=== PATIENT | female | born 1980 | race Caucasian/White ===

== ENCOUNTER 2016-03-25 16:52 | Outpatient (CLI) | payer OTHER, MEDICAID ==
[2016-03-25 17:50] LABS: APPEARANCE,URINE CLEAR; BILIRUBIN,URINE NEGATIVE (NEGATIVE); GLUCOSE, URINE NEGATIVE (NEGATIVE); KETONES,URINE NEGATIVE (NEGATIVE); LEUKOCYTE ESTERASE,URINE NEGATIVE (NEGATIVE); NITRITE,URINE NEGATIVE (NEGATIVE); PROTEIN,URINE NEGATIVE (NEGATIVE); URINE SPECIFIC GRAVITY 1.015; UROBILINOGEN,URINE NEGATIVE mg/dL (<2.0)
[2016-03-25 17:54] LABS: ABSOLUTE EOSINOPHILS # (AUTO) 0.1 10^3/uL (0.0-0.6); ABSOLUTE LYMPHOCYTES (AUTO) 1.7 10^3/uL (0.5-4.7); ABSOLUTE MONOCYTES (AUTO) 0.7 10^3/uL (0.1-1.4); ABSOLUTE NEUT (AUTO) 7.1 10^3/uL (1.7-8.2); BASOPHILS % (AUTO) 0.3 % (0-2); EOSINOPHILS % (AUTO) 1.4 % (0-6); HEMATOCRIT 32.2 % (36.0-47.0); HEMOGLOBIN 10.8 g/dL (12.0-15.5); HGB HCT DIFFERENCE 0.2; LYMPHOCYTES % (AUTO) 17.3 % (13-45); MEAN CORPUSCULAR HEMOGLOBIN 29.7 pg (27.0-33.4); MEAN CORPUSCULAR HGB CONC 33.6 g/dL (32.0-36.0); MEAN CORPUSCULAR VOLUME 88 fl (80-97); RED BLOOD COUNT 3.65 10^6/uL (3.72-5.28); RED CELL DISTRIBUTION WIDTH 14.2 % (11.5-14.0); WHITE BLOOD COUNT 9.6 10^3/uL (4.0-10.5)
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
[2016-03-25 18:04] LABS: URINE BARBITURATES SCREEN NEGATIVE; URINE METHADONE SCREEN NEGATIVE; URINE OPIATES LOW NEGATIVE; URINE PHENCYCLIDINE SCREEN NEGATIVE
[2016-03-25 18:04] LABS: PROTHROMBIN TIME 12.6 SEC (11.4-15.4)
[2016-03-25 18:05] LABS: PARTIAL THROMBOPLASTIN TIME 26.7 SEC (23.5-35.8)
[2016-03-25 20:18] LABS: TOTAL RBC COUNT 2093; TYPE IN FILE? TYPE IN FILE; VOL OF FETOMATERNAL HEMORRHAGE 0 ML (0)
== END 2016-03-25 19:02 | disposition home or self-care (01) ==
LOC: LC 16:52
PROVIDERS: ATTEND Student in an Organized Health Care Education/Training Program
PROC: 4A1HXCZ Monitoring of Products of Conception, Cardiac Rate, External Approach (ICD-10-PCS; principal; 2016-03-25)
DX: O09.522 Supervision of elderly multigravida, second trimester (principal); Z3A.27 27 weeks gestation of pregnancy
CPT/HCPCS: 36415; 76815; 80307; 81001; 85025; 85362; 85460; 85610; 85730

== ENCOUNTER 2016-05-02 17:43 | Outpatient (CLI) | payer OTHER, MEDICAID | END 2016-05-02 19:09 | disposition home or self-care (01) | LOC: LC 17:43 | PROVIDERS: ATTEND Obstetrics & Gynecology | PROC: 4A1HXCZ Monitoring of Products of Conception, Cardiac Rate, External Approach (ICD-10-PCS; principal; 2016-05-02) | DX: O09.523 Supervision of elderly multigravida, third trimester (principal); Z3A.33 33 weeks gestation of pregnancy | CPT/HCPCS: 59025 ==

== ENCOUNTER → 2016-05-07 | Outpatient (CLI) | payer OTHER, MEDICAID ==
[2016-05-07 19:06] LABS: ABSOLUTE EOSINOPHILS # (AUTO) 0.1 10^3/uL (0.0-0.6); ABSOLUTE LYMPHOCYTES (AUTO) 1.6 10^3/uL (0.5-4.7); ABSOLUTE MONOCYTES (AUTO) 0.6 10^3/uL (0.1-1.4); ABSOLUTE NEUT (AUTO) 6.6 10^3/uL (1.7-8.2); BASOPHILS % (AUTO) 0.2 % (0-2); HEMATOCRIT 34.6 % (36.0-47.0); HEMOGLOBIN 11.5 g/dL (12.0-15.5); HGB HCT DIFFERENCE -0.1; LYMPHOCYTES % (AUTO) 17.7 % (13-45); MEAN CORPUSCULAR HEMOGLOBIN 29.5 pg (27.0-33.4); MEAN CORPUSCULAR HGB CONC 33.3 g/dL (32.0-36.0); MEAN CORPUSCULAR VOLUME 89 fl (80-97); MONOCYTES % (AUTO) 6.3 % (3-13); RED CELL DISTRIBUTION WIDTH 15.4 % (11.5-14.0); SEGMENTED NEUTROPHILS % (AUTO) 74.8 % (42-78); WHITE BLOOD COUNT 8.8 10^3/uL (4.0-10.5)
== END ==
LOC: OD 17:08
PROVIDERS: ATTEND Student in an Organized Health Care Education/Training Program
DX: D69.6 Thrombocytopenia, unspecified (principal)
CPT/HCPCS: 85025

== ENCOUNTER → 2016-05-20 | Outpatient (CLI) | payer OTHER, MEDICAID ==
[2016-05-20 18:00] LABS: ALANINE AMINOTRANSFERASE 60 U/L (9-52); ALBUMIN 3.3 g/dL (3.5-5.0); ALKALINE PHOSPHATASE 102 U/L (38-126); ASPARTATE AMINO TRANSFERASE 41 U/L (14-36); BILIRUBIN,DIRECT 0.1 mg/dL (0.0-0.4); BILIRUBIN,TOTAL 0.4 mg/dL (0.2-1.3)
== END ==
LOC: OD 16:30
PROVIDERS: ATTEND Obstetrics & Gynecology
DX: O24.419 Gestational diabetes mellitus in pregnancy, unspecified control (principal); O26.899 Other specified pregnancy related conditions, unspecified trimester
CPT/HCPCS: 36415; 80076; 82239

== ENCOUNTER 2016-06-05 11:14 | Inpatient (IN) | payer OTHER, MEDICAID ==
--- NOTE | 2016-06-05 11:49 | Non Stress Test Report ---
Non Stress Test Datetime Report Generated by CPN: 06/05/2016 11:48 DEMOGRAPHIC EGA NST: 33.1 INDICATION Indication for Study: Ordered by Provider; Other MONITORING Monitor Explained: Monitor Explained; Test Explained; Patient Verbalized Understanding Time on Monitor: 05/02/2016 18:00 Time off Monitor: 05/02/2016 19:00 NST Duration: 60 NST INTERVENTIONS NST Interventions: PO Hydration; Reposition Patient Physician Notified NST: H. Osman CNM BABY A: [id number] BABY A Movement : Present Contraction Frequency : none FHR Baseline : 130 Accelerations : 15X15 Decelerations : None Variability : Moderate 6-25bpm NST Review: Meets Criteria for Reactive NST NST Review and Verified By : Na Camp RNC NST Results: Reactive NST REPORT Report Trigger: Send Report
[2016-06-05 11:57] LABS: AMNISURE (ROM) POSITIVE (NEGATIVE)
[2016-06-05 11:58] LABS: APPEARANCE,URINE CLEAR; BILIRUBIN,URINE NEGATIVE (NEGATIVE); GLUCOSE, URINE NEGATIVE (NEGATIVE); KETONES,URINE NEGATIVE (NEGATIVE); LEUKOCYTE ESTERASE,URINE NEGATIVE (NEGATIVE); NITRITE,URINE NEGATIVE (NEGATIVE); PROTEIN,URINE NEGATIVE (NEGATIVE); URINE SPECIFIC GRAVITY 1.003; UROBILINOGEN,URINE NEGATIVE mg/dL (<2.0)
[2016-06-05 12:38] LABS: URINE BARBITURATES SCREEN NEGATIVE; URINE METHADONE SCREEN NEGATIVE; URINE OPIATES LOW NEGATIVE; URINE PHENCYCLIDINE SCREEN NEGATIVE
[2016-06-05 14:16] LABS: ABSOLUTE MONOCYTES (AUTO) 0.5 10^3/uL (0.1-1.4); ABSOLUTE NEUT (AUTO) 11.3 10^3/uL (1.7-8.2); BASOPHILS % (AUTO) 0.1 % (0-2); EOSINOPHILS % (AUTO) 0.1 % (0-6); HEMATOCRIT 31.7 % (36.0-47.0); HEMOGLOBIN 10.7 g/dL (12.0-15.5); HGB HCT DIFFERENCE 0.4; LYMPHOCYTES % (AUTO) 7.7 % (13-45); MEAN CORPUSCULAR HEMOGLOBIN 29.3 pg (27.0-33.4); MEAN CORPUSCULAR HGB CONC 33.7 g/dL (32.0-36.0); MEAN CORPUSCULAR VOLUME 87 fl (80-97); MONOCYTES % (AUTO) 3.6 % (3-13); RED BLOOD COUNT 3.65 10^6/uL (3.72-5.28); RED CELL DISTRIBUTION WIDTH 15.9 % (11.5-14.0); SEGMENTED NEUTROPHILS % (AUTO) 88.5 % (42-78); WHITE BLOOD COUNT 12.7 10^3/uL (4.0-10.5)
[2016-06-05] MEDS ORDERED: MISOPROSTOL 0.2 MG TABLET ONE (14:20)
[2016-06-05] MEDS ORDERED: OXYTOCIN/NORMAL SALINE 20 UNIT/1,000 ML RTUINJ ONE ×2 (14:20→19:27)
[2016-06-05] MEDS ORDERED: LIDOCAINE 1% INJ-PF (10 MG/ML) 30 ML SDV ONE (14:20)
[2016-06-05] MEDS ORDERED: FENTANYL/BUPIVACAINE/NS/PF 200 MCG/100 ML RTUINJ EPI ONE (15:30)
[2016-06-05] MEDS ORDERED: EPHEDRINE SULFATE INJ 50 MG/1 ML AMPULE ONE (15:30)
[2016-06-05] MEDS ORDERED: BUPIVACAINE HCL 0.25 % INJ/PF (2.5 MG/1 ML) 30 ML VIAL ONE (15:30)
[2016-06-05] MEDS ORDERED: RINGERS SOLUTION,LACTATED 1,000 ML IV PRN ×2 (15:56→15:58)
[2016-06-05] MEDS ORDERED: OXYTOCIN/NORMAL SALINE 1,000 ML IV PRN ×2 (15:58→23:49)
--- NOTE | 2016-06-05 18:02 | L&D General Admission ---
General Admit Datetime Report Generated by CPN: 06/05/2016 18:00 INFORMATION Patient Age: 35 (03/25/2016 16:53:QS system process) EDC: 06/19/2016 00:00 (03/25/2016 17:10:Heather Dozier RN) : 7 (03/25/2016 17:10:Heather Dozier RN) Para: 3 (03/25/2016 19:03:Heather Dozier RN) Term: 3 (03/25/2016 17:10:Heather Dozier RN) Induced Abortions: 3 (03/25/2016 17:10:Heather Dozier RN) Livin (03/25/2016 17:10:Heather Dozier RN) Baby, Number in Womb: 1 (03/25/2016 19:03:Heather Dozier RN) CARE Primary Friend Of The Court: [facility] (03/25/2016 17:10:Heather Dozier RN) Month of 1st Visit: November (03/25/2016 17:10:Heather Dozier RN) Adequate Care: Yes (03/25/2016 17:10:NATASHA Pimentel) Prepregnancy Weight (lb): 201 (03/25/2016 17:10:Heather Dozier RN) Prepregnancy Weight (kg): 91.4 (03/25/2016 17:10:QS system process) Height (in): 64 (05/02/2016 18:32:QS system process) ALLERGIES Medication Allergy: No (03/25/2016 17:10:Heather Dozier RN) Medication Allergies: cat dander (03/25/2016); dog dander (03/25/2016) (03/25/2016 17:51:QS system process) Latex Allergy: No Latex Allergies (03/25/2016 17:10:Heather Dozier RN) Environmental Allergies: cats, dogs, seasonal (03/25/2016 17:10:Heather Dozier RN) COMMUNICATION Primary Language: Namibian (03/25/2016 17:10:Heather Dozier RN) Communication Barrier(s): None (03/25/2016 17:10:Rochelle Cabrera RN) DEMOGRAPHICS Address: [address] [place] [id number] (03/25/2016 16:53:QS system process) Zipcode: [address] (03/25/2016 16:53:QS system process) Home (03/25/2016 16:53:QS system process) Work (03/25/2016 16:53:QS system process) N: [phone] (03/25/2016 16:53:QS system process) Next of Kin Name: CORRINE BARRIENTOS (03/25/2016 16:53:QS system process) Next of Kin (03/25/2016 16:53:QS system process) Next of Kin Relationship: OR (05/02/2016 17:43:QS system process) Date of : 1980 (03/25/2016 16:53:QS system process) Marital Status: Single (03/25/2016 16:53:QS system process) Sex: Female (03/25/2016 16:53:QS system process) Race: (03/25/2016 16:53:QS system process) Ethnicity: Non- or (03/25/2016 16:53:QS system process) Pentecostal: Buddhist (03/25/2016 16:53:QS system process) DRUG AND ALCOHOL USE Alcohol: No (03/25/2016 17:10:Heather Dozier RN) Cigarettes: Former Smoker. [id number] (03/25/2016 17:10:Heather Dozier RN) Marijuana: No (03/25/2016 17:10:Heather Dozier RN) Cocaine: No (03/25/2016 17:10:Heather Dozier RN) Other Illicit Drugs: No (03/25/2016 17:10:Heather Dozier RN) VACCINE HISTORY Influenza Vaccine: Yes (03/25/2016 17:10:Heather Dozier RN) Influenza Date: 11/2015 (03/25/2016 17:10:Heather Dozier RN) Pneumococcal Vaccine: No (03/25/2016 17:10:Heather Dozier RN) Tetanus Vaccine: Yes (03/25/2016 17:10:Heather Dozier RN) Tetanus Date: 02/2016 (03/25/2016 17:10:Heather Dozier RN) Tdap Vaccine: Yes (03/25/2016 17:10:Heather Dozier RN) Tdap Date: 02/2016 (03/25/2016 17:10:Heather Dozier RN) Hepatitis B Vaccine: Uncertain (03/25/2016 17:10:Heather Dozier RN) Ribbon Sweatband Operator: [facility] (03/25/2016 17:10:Heather Dozier RN) Feeding Preference: Breast (03/25/2016 17:10:Heather Dozier RN) Benefit of Breast Feed Discussed: Yes (03/25/2016 17:10:Heather Dozier RN) Circumcision: N/A (03/25/2016 17:10:Heather Dozier RN) Classes Attended: No (03/25/2016 17:10:Heather Dozier RN) Tubal Ligation: No (03/25/2016 17:10:Heather Dozier RN) Tubal Authorization Signed: N/A (03/25/2016 17:10:Heather Dozier RN) Consent: N/A (03/25/2016 17:10:Heather Dozier RN) Consent Signed: N/A (03/25/2016 17:10:Heather Dozier RN) Pain Management Plans: Epidural (03/25/2016 17:10:Heather Dozier RN) Plans for Labor and Delivery: None (03/25/2016 17:10:Heather Dozier RN) Support Person: Josue Hartmann (03/25/2016 17:10:Heather Dozier RN) Support Person Relationship: Significant Other (03/25/2016 17:10:Heather Dozier RN) Cultural/Spritual Practice: No (03/25/2016 17:10:Heather Dozier RN) Spir/Cult Dietary Needs: No (03/25/2016 17:10:Heather Dozier RN) LIVING SITUATION/DISCHARGE PLAN Living Arrangements: House (03/25/2016 17:10:Heather Dozier RN) Adequate Access to:: Electric; Heat; Refrigeration; Plumbing/Running water; Phone; Transportation (03/25/2016 17:10:Heather Dozier RN) WIC Program: No (03/25/2016 17:10:Heather Dozier RN) Discharge Laundry Agent Person: CECIL (03/25/2016 17:10:Heather Dozier RN) Person to Help after Discharge: CECIL (03/25/2016 17:10:Heather Dozier RN) Currently Using [employer]: No (03/25/2016 17:10:Heather Dozier RN) Outside Agency/[employer] Operator: No (03/25/2016 17:10:Heather Dozier RN) Car Seat for Discharge: Yes (03/25/2016 17:10:Heather Dozier RN) Adoption Requested: No (03/25/2016 17:10:Heather Dozier RN) Pt Contact w/ Post : N/A (03/25/2016 17:10:Heather Dozier RN) LABS Blood Type: A Positive (03/25/2016 17:10:Heather Dozier RN) Antibody Screen: Negative (03/25/2016 17:10:Heather Dozier RN) Hemoglobin: 10.7 L (06/05/2016 14:00:QS system process) Hematocrit: 31.7 L (06/05/2016 14:00:QS system process) MCV: 87 (06/05/2016 14:00:QS system process) Group Beta Strep: Negative (03/25/2016 17:10:Heather Dozier RN) Gonorrhea: Negative (03/25/2016 17:10:Heather Dozier RN) Chlamydia: Negative (03/25/2016 17:10:Heather Dozier RN) RPR/VDRL: Nonreactive (03/25/2016 17:10:Heather Dozier RN) Hepatitis B: Negative (03/25/2016 17:10:Heather Dozier RN) Rubella: Immune (03/25/2016 17:10:Heather Dozier RN) OB/PREVIOUS HISTORY Previous Procedures: Ultrasound; NST (03/25/2016 17:10:Heather Dozier RN) Current Procedures: Ultrasound (03/25/2016 17:10:Heather Dozier RN) History of Previous : No (03/25/2016 17:10:Heather Dozier RN) History of Gestational Diabetes: Yes (03/25/2016 17:10:Heather Dozier RN) History of PIH: No (03/25/2016 17:10:Heather Dozier RN) History of Incompetent Cervix: No (03/25/2016 17:10:Heather Dozier RN) History of Placenta Previa/Abrup: Yes (03/25/2016 17:10:Heather Dozier RN) History of Macrosomia: No (03/25/2016 17:10:Heather Dozier RN) History of IUGR: No (03/25/2016 17:10:Heather Dozier RN) History of Hemorrhage: No (03/25/2016 17:10:Heather Dozier RN) History of Loss/Stillborn: No (03/25/2016 17:10:Heather Dozier RN) History of : No (03/25/2016 17:10:Heather Dozier RN) History of D (Rh) Sensitization: No (03/25/2016 17:10:Heather Dozier RN) History Recurrent Loss/Stillborn: No (03/25/2016 17:10:Heather Dozier RN) History Depression/PP Depression: Yes (03/25/2016 17:10:Heather Dozier RN) History of Uterine Anomaly/ADRIÁN: No (03/25/2016 17:10:Heather Dozier RN) History of Infertility: No (03/25/2016 17:10:Heather Dozier RN) History of ART Treatment: No (03/25/2016 17:10:Heather Dozier RN) History of ADRIÁN: No (03/25/2016 17:10:Heather Dozier RN) Comments Obstetrical History: G1: EAB 1995 G2: 1997, episiotomy G3: EAB 2000 G4: 2001 G5: 2008 G6: EAB 2015 G7: current, GDM, placenta previa (resolved), heart palpitations, SOB (03/25/2016 17:10:Heather Dozier RN) MEDICAL HISTORY Med Hx Diabetes: Yes (03/25/2016 17:10:Heather Dozier RN) Diabetes Type: Gestational Diabetes (03/25/2016 17:10:Heather Dozier RN) Med Hx Hypertension: No (03/25/2016 17:10:Heather Dozier RN) Med Hx Heart Disease: Yes (03/25/2016 17:10:Heather Dozier RN) Med Hx Autoimmune Disorder: No (03/25/2016 17:10:Heather Dozier RN) Med Hx Kidney Disease/UTI: No (03/25/2016 17:10:Heather Dozier RN) Med Hx Neurologic/Epilepsy: No (03/25/2016 17:10:Heather Dozier RN) Med Hx Psychiatric Disorders: No (03/25/2016 17:10:Heather Dozier RN) Med Hx Hepatitis/Liver Disease: No (03/25/2016 17:10:Heather Dozier RN) Med Hx Varicosities/Phlebitis: No (03/25/2016 17:10:Heather Dozier RN) Med Hx Thyroid Dysfunction: Yes (03/25/2016 17:10:Heather Dozier RN) Med Hx Trauma/Violence: No (03/25/2016 17:10:Heather Dozier RN) Med Hx Blood Transfusion: No (03/25/2016 17:10:Heather Dozier RN) Med Hx Pulmonary (Asthma,TB): Yes (03/25/2016 17:10:Heather Dozier RN) Med Hx Breast: No (03/25/2016 17:10:Heather Dozier RN) Med Hx COMPLIANCE EXAMINER Surgery: No (03/25/2016 17:10:Heather Dozier RN) Med Hx Hospitalization/Surgery: Yes (03/25/2016 17:10:Heather Dozier RN) Med Hx Anesthetic Complications: No (03/25/2016 17:10:Heather Dozier RN) Med Hx Abnormal Pap Smear: Yes (03/25/2016 17:10:Heather Dozier RN) Other Medical Diseases: No (03/25/2016 17:10:Heather Dozier RN) Med Hx Significant Family Hx: No (03/25/2016 17:10:Heather Dozier RN) Details of Med/Surg Hx: laparotomy - 1 fallopian tube and ovary removed in 2010, currently wearing holter monitor, echocardiogram, undiagnosed pp depression, hypothyroid, shortness of breath, palpitations, ADD, anxiety, childhood asthma, gall bladder removed 2002, abnl pap, LEEP, GERD, rosacea, lower back degeneration, GDM, ITP (03/25/2016 17:10:Heather Dozier RN) INFECTIOUS HISTORY Inf Hx Gonorrhea: No (03/25/2016 17:10:Heather Dozier RN) Inf Hx Chlamydia: Yes (03/25/2016 17:10:Heather Dozier RN) Inf Hx Syphilis: No (03/25/2016 17:10:Heather Dozier RN) Inf Hx HIV/AIDS: No (03/25/2016 17:10:Heather Dozier RN) Inf Hx Human Papilloma Virus: No (03/25/2016 17:10:Heather Dozier RN) Inf Hx Pt/Partner Genital Herpes: No (03/25/2016 17:10:Heather Dozier RN) Inf Hx Tuberculosis/Exposure: No (03/25/2016 17:10:Heather Dozier RN) Inf Hx Hepatitis B,C: No (03/25/2016 17:10:Heather Dozier RN) Inf Hx Rash or Viral Illness: No (03/25/2016 17:10:Heather Dozier RN) Details of Infectious Hx: Chlamydia - 1997 treated Trich - 1995 treated Trich - 2014 treated (03/25/2016 17:10:Heather Dozier RN) GENETIC HISTORY Gen Hx Age >=35 at MINDY: No (03/25/2016 17:10:Heather Dozier RN) Gen Hx Thalassemia: No (03/25/2016 17:10:Heather Dozier RN) Gen Hx Congenital Heart Defect: No (03/25/2016 17:10:Heather Dozier RN) Gen Hx Neural Tube Defect: No (03/25/2016 17:10:Heather Dozier RN) Gen Hx Down's Syndrome: No (03/25/2016 17:10:Heather Dozier RN) Gen Hx Chidi-Sachs: No (03/25/2016 17:10:Heather Dozier RN) Gen Hx Lucas: No (03/25/2016 17:10:Heather Dozier RN) Gen Hx Familial Dysautonomia: No (03/25/2016 17:10:Heather Dozier RN) Gen Hx Sickle Cell Disease/Trait: No (03/25/2016 17:10:Heather Dozier RN) Gen Hx Hemophilia/Blood Disorder: No (03/25/2016 17:10:Heather Dozier RN) Gen Hx Muscular Dystrophy: No (03/25/2016 17:10:Heather Dozier RN) Gen Hx Cystic Fibrosis: No (03/25/2016 17:10:Heather Dozier RN) Gen Hx Huntingtons Chorea: No (03/25/2016 17:10:Heather Dozier RN) Gen Hx Mental Retardation/Autism: No (03/25/2016 17:10:Heather Dozier RN) Gen Hx Tested for Fragile X: No (03/25/2016 17:10:Heather Dozier RN) Gen Hx Other Inher/Chromosomal: No (03/25/2016 17:10:Heather Dozier RN) Gen Hx Maternal Metabolic DO: No (03/25/2016 17:10:Heather Dozier RN) Gen Hx Pt Father or FOB Defect: No (03/25/2016 17:10:Heather Dozier RN) Gen Hx Other Genetic History: No (03/25/2016 17:10:Heather Dozier RN) Gen Hx Drugs/Meds since LMP: Yes (03/25/2016 17:10:Heather Dozier RN) Gen Hx Medications: PNV, Claritan, Synthroid, Vitamin D, omega 3, Ranitidine (03/25/2016 17:10:Heather Dozier RN)
--- NOTE | 2016-06-05 18:02 | L&D Current Admission ---
Current Admit Datetime Report Generated by CPN: 06/05/2016 18:00 ADMISSION INFORMATION Chief Complaint: Suspected Rupture of Membranes (06/05/2016 11:50:Rochelle Cabrera RN)
--- NOTE | 2016-06-05 18:43 | L&D Progress Notes ---
PROGRESS NOTES Datetime Report Generated by CPN: 06/05/2016 18:43 PROGRESS NOTE Procedures: Intrauterine Pressure Catheter; Scalp Electrode Vital Signs : Reviewed Comment: pt resting comfortably bloody show noted cervix 4-5/50/-1 abdomen soft and nontender pitocin at 20 milliunits/ min mvu's 240 iupc flushed per rn pt on peanut ball anticipate vaginal delivery VAGINAL EXAM Dilatation: 3 Effacement: 25 Station: -2 FETUS A FHR - Baseline: 147 Monitoring: Internal Scalp Electrode Variability: Moderate 6-25bpm Accelerations: 15X15 : 38.0 Estimated Weight (gm): 4000 Presentation: Vertex SIGNATURE SIGNATURE: [id number] SIGNATURE: [id number] Assignment: Tiara Muñoz MD Signature: with User ID: [email or web address] : with User ID: [email or web address]
--- NOTE | 2016-06-05 20:01 | L&D Flow Sheet ---
LD Flowsheet Datetime Report Generated by CPN: 06/05/2016 20:00 Datetime: 06/05/2016 19:45 NBP Sys/Iris/Mean (mmHg): 111 (QS system process) : 51 (QS system process) : 72 (QS system process) Pulse: 94 (QS system process) LaborFlag: Labor (QS system process) Datetime: 06/05/2016 19:17 NBP Sys/Iris/Mean (mmHg): 141 (QS system process) : 109 (QS system process) : 116 (QS system process) Pulse: 106 (QS system process) LaborFlag: Labor (QS system process) Datetime: 06/05/2016 19:13 Maternal Assessment Level of Consciousness: Fully Conscious (Sarah Lattibeaudeir, RN) Headache: Frontal (Sarah Lattibeaudeir, RN) Breath Sounds, Left: Clear and Equal (Sarah Lattibeaudeir, RN) Breath Sounds, Right: Clear and Equal (Sarah Lattibeaudeir, RN) Nausea/Vomiting: Denies (Sarah Lattibeaudeir, RN) RUQ Epigastric Pain: Denies (Sarah Lattibeaudeir, RN) Datetime: 06/05/2016 19:02 NBP Sys/Iris/Mean (mmHg): 107 (QS system process) : 58 (QS system process) : 72 (QS system process) Pulse: 100 (QS system process) LaborFlag: Labor (QS system process) Datetime: 06/05/2016 19:00 Vital Signs Stage of : Labor (Rochelle Carine Roulund, RN) Respirations: 18 (Rochelle Carine Roulund, RN) Uterine Activity Monitor Mode: Internal (Rochelle Carine Roulund, RN) Frequency (min): 1.5-2.5 (Rochelle Carine Roulund, RN) Quality: Moderate (Rochelle Carine Roulund, RN) Duration (sec): 60-70 (Rochelle Carine Roulund, RN) Resting Tone (Palpate): Relaxed (Rochelle Carine Roulund, RN) Assessment A Monitor Mode: Internal Scalp Electrode (Rochelle Carine Roulund, RN) FHR Baseline Rate : 160 (Rochelle Carine Roulund, RN) FHR Baseline Changes: No Baseline Change (Rochelle Carine Roulund, RN) Variability: Minimal - Undetectable to <=5 bpm (Rochelle Carine Roulund, RN) Accelerations: None (Rochelle Carine Roulund, RN) Decelerations: Late (Rochelle Carine Roulund, RN) Pain Pain Scale: 1 (Rochelle Carine Roulund, RN) Pain Presence: None/Denies (Rochelle Cabrera, JEFFREY) Pain Type: N/A (Rochelle Cabrera RN) Pain Relief Measures: Comfort Measures (Rochelle Cabrera RN) Pain Coping: Talking Through Contractions (Rochelle Cabrera, JEFFREY) Medications Pitocin (milliunit): Pitocin Remains (milliunits) @ 20 (Rochelle Cabrera, JEFFREY) Patient Care IV/Blood Work: IV Infusing per Order (Rochelle Cabrera RN) Patient Position/Activity: Peanut Ball; Right Extreme (Rochelle Cabrera RN) Comfort Measures: Family Support (Rochelle Cabrera RN) Communication Communication: RN at Bedside; RN Reviewed Strip (Rochelle Cabrera, RN) LaborFlag: Labor (QS system process) Datetime: 06/05/2016 18:56 Vital Signs Stage of : Labor (Rochelle Cabrera, RN) Decelerations: Late (Rochelle Cabrera RN) Actions for Decelerations: Side to Side (Rochelle Cabrera RN) Patient Position/Activity: Peanut Ball; Right Extreme (Rochelle Cabrera, JEFFREY) Communication Communication: RN at Bedside; RN Reviewed Strip (Rochelle Cabrera, RN) Datetime: 06/05/2016 18:45 Vital Signs Stage of : Labor (Rochelle Cabrera, RN) NBP Sys/Iris/Mean (mmHg): 125 (QS system process) : 58 (QS system process) : 81 (QS system process) Pulse: 88 (QS system process) Respirations: 18 (Rochelle Cabrera, RN) Uterine Activity Monitor Mode: External (Rochelle Carine Roulund, RN) Frequency (min): 2-3 (Rochelle Carine Roulund, RN) Quality: Moderate (Rochelle Carine Roulund, RN) Duration (sec): 60-80 (Rochelle Carine Roulund, RN) Resting Tone (Palpate): Relaxed (Rochelle Carine Roulund, RN) Assessment A Monitor Mode: Internal Scalp Electrode (Rochelle Carine Roulund, RN) FHR Baseline Rate : 160 (Rochelle Carine Roulund, RN) FHR Baseline Changes: No Baseline Change (Rochelle Carine Roulund, RN) Variability: Moderate 6-25 bpm (Rochelle Carine Roulund, RN) Accelerations: None (Rochelle Carine Roulund, RN) Decelerations: Variable (Rochelle Carine Roulund, RN) Pain Relief Measures: Comfort Measures (Rochelle Carine Roulund, RN) Pain Coping: Talking Through Contractions (Rochelle Carine Roulund, RN) Medications Pitocin (milliunit): Pitocin Remains (milliunits) @ 20 (Rochelle Sánchezlund, RN) Patient Care IV/Blood Work: IV Infusing per Order (Rochelle Cabrera, RN) Patient Position/Activity: Left Extreme; Peanut Ball (Rochelle Cabrera, RN) Comfort Measures: Family Support (Rochelle Cabrera, RN) I/O Interventions: Ice Chips Given (Rochelle Cabrera, RN) Communication Communication: RN at Bedside; RN Reviewed Strip (Rochelle Cabrera, RN) LaborFlag: Labor (QS system process) Datetime: 06/05/2016 18:39 Contraction Comments: IUPC NOT FUNCTIONING (Rochelle Carinedavid Hernandeznd, RN) Datetime: 06/05/2016 18:36 Patient Position/Activity: Left Extreme; Low Fowlers (Rochelle Carinedavid Hernandeznd, RN) Datetime: 06/05/2016 18:32 Vital Signs Stage of : Labor (Rochelle Cabrera, RN) Respirations: 18 (Rochelle Cabrera, RN) Uterine Activity Monitor Mode: Internal (Rochelle Cabrera, RN) Frequency (min): 2 (Rochelle Cabrera, RN) Quality: Moderate (Rochelle Cabrera, RN) Duration (sec): 65-75 (Rochelle Cabrera, RN) Resting Tone (Palpate): Relaxed (Rochelle Cabrera, RN) Assessment A Monitor Mode: External US (Rochelle Cabrera RN) FHR Baseline Rate : 145 (Rochelle Cabrera, RN) FHR Baseline Changes: No Baseline Change (Rochelle Cabrera, RN) Variability: Moderate 6-25 bpm (Rochelle Cabrera, RN) Accelerations: 15X15 (Rochelle Cabrera RN) Decelerations: None (Rochelle Cabrera RN) Pain Relief Measures: Comfort Measures (Rochelle Cabrera RN) Pain Coping: Talking Through Contractions (Rochelle Cabrera RN) Vaginal Exam Dilatation (cm): 4.5 (Rochelle Cabrera RN) Effacement (%): 50 (Rochelle Cabrera RN) Station: -1 (Rochelle Cabrera RN) Exam by: Vivian BAL CNM (Rochelle Cabrera RN) Vaginal Bleeding: Normal Show (Rochelle Cabrera RN) Cervix, Consistency: Soft (Rochelle Cabrera RN) Cervix, Position: Midposition (Rochelle Cabrera RN) Medications Pitocin (milliunit): Pitocin Remains (milliunits) @ 20 (Rochelle Cabrera RN) Patient Care IV/Blood Work: IV Infusing per Order (Rochelle Cabrera RN) Procedures: Sterile Vag Exam (Rochelle Cabrera RN) Patient Position/Activity: Peanut Ball; Right Extreme (Rochelle Cabrera RN) Comfort Measures: Family Support (Rochelle Cabrera RN) Provider Reviewed Strip: Yes (Rochelle Cabrera RN) Communication Communication: RN at Bedside; RN Reviewed Strip; Provider at Bedside (Rochelle Cabrera RN) LaborFlag: Labor (QS system process) Datetime: 06/05/2016 18:30 NBP Sys/Iris/Mean (mmHg): 114 (QS system process) : 56 (QS system process) : 81 (QS system process) Pulse: 90 (QS system process) LaborFlag: Labor (QS system process) Datetime: 06/05/2016 18:16 Vital Signs Stage of : Labor (Rochelle Cabrera, JEFFREY) NBP Sys/Iris/Mean (mmHg): 119 (QS system process) : 56 (QS system process) : 81 (QS system process) Pulse: 97 (QS system process) Respirations: 18 (Rochelle Cabrera, RN) Uterine Activity Monitor Mode: Internal (Rochelle Carine Roulund, RN) Frequency (min): 2-2.5 (Rochelle Carine Roulund, RN) Quality: Moderate (Rochelle Carine Roulund, RN) Duration (sec): 55-65 (Rochelle Carine Roulund, RN) Resting Tone (Palpate): Relaxed (Rochelle Carine Roulund, RN) Resting Tone IUP (mmHg): 30 (Rochelle Carine Roulund, RN) Intensity IUP (mmHg): 50 (Rochelle Carine Roulund, RN) Assessment A Monitor Mode: Internal Scalp Electrode (Rochelle Carine Roulund, RN) FHR Baseline Rate : 150 (Rochelle Carine Roulund, RN) FHR Baseline Changes: No Baseline Change (Rochelle Carine Roulund, RN) Variability: Moderate 6-25 bpm (Rochelle Carine Roulund, RN) Accelerations: 15X15 (Rochelle Carine Roulund, RN) Decelerations: Variable (Rochelle Carine Roulund, RN) Pain Relief Measures: Comfort Measures (Rochelle Carine Roulund, RN) Pain Coping: Talking Through Contractions (Rochelle Carine Roulund, RN) Medications Pitocin (milliunit): Pitocin Remains (milliunits) @ 20 (Rochelle Cabrera, RN) Patient Care IV/Blood Work: IV Infusing per Order (Rochelle Cabrera, RN) Patient Position/Activity: Peanut Ball; Right Extreme (Rochelle Cabrera, RN) Comfort Measures: Family Support (Rochelle Cabrera, RN) Communication Communication: RN at Bedside; RN Reviewed Strip (Rochelle Cabrera, RN) LaborFlag: Labor (QS system process) Datetime: 06/05/2016 18:01 NBP Sys/Iris/Mean (mmHg): 117 (QS system process) : 60 (QS system process) : 77 (QS system process) Pulse: 103 (QS system process) LaborFlag: Labor (QS system process) Datetime: 06/05/2016 18:00 Vital Signs Stage of : Labor (Rochelle Cabrera, RN) Respirations: 18 (Rochelle Cabrera, RN) Uterine Activity Monitor Mode: Internal (Rochelle Carine Roulund, RN) Frequency (min): 2-2.5 (Rochelle Carine Roulund, RN) Quality: Moderate (Rochelle Carine Roulund, RN) Duration (sec): 55-65 (Rochelle Carine Roulund, RN) Resting Tone (Palpate): Relaxed (Rochelle Carine Roulund, RN) Resting Tone IUP (mmHg): 25 (Rochelle Carine Roulund, RN) Intensity IUP (mmHg): 50 (Rochelle Carine Roulund, RN) Contraction Comments: 245 MVU (Rochelle Carine Roulund, RN) Assessment A Monitor Mode: External US (Rochelle Carine Roulund, RN) FHR Baseline Rate : 160 (Rochelle Carine Roulund, RN) FHR Baseline Changes: No Baseline Change (Rochelle Carine Roulund, RN) Variability: Minimal - Undetectable to <=5 bpm (Rochelle Carine Roulund, RN) Accelerations: None (Rochelle Carine Roulund, RN) Decelerations: Late (Rochelle Carine Roulund, RN) Actions for Decelerations: Side to Side (Rochelle Carine Roulund, RN) Pain Pain Scale: 1 (Rochelle Cabrera RN) Pain Presence: None/Denies (Rochelle Cabrera, JEFFREY) Pain Type: N/A (Rochelle Cabrera, JEFFREY) Pain Relief Measures: Comfort Measures (Rochelle Cabrera, JEFFREY) Pain Coping: Talking Through Contractions (Rochelle Cabrera, JEFFREY) Medications Pitocin (milliunit): Pitocin Remains (milliunits) @ 20 (Rochelle Cabrera, RN) Patient Care IV/Blood Work: IV Infusing per Order (Rochelle Cabrera RN) Patient Position/Activity: Peanut Ball; Right Extreme (Rochelle Cabrera, RN) Comfort Measures: Family Support (Rochelle Cabrera, RN) Communication Communication: RN at Bedside; RN Reviewed Strip (Rochelle Cabrera, RN) LaborFlag: Labor (QS system process) Datetime: 06/05/2016 17:45 Vital Signs Stage of : Labor (Rochelle Cabrera RN) NBP Sys/Iris/Mean (mmHg): 132 (QS system process) : 60 (QS system process) : 86 (QS system process) Pulse: 81 (QS system process) Respirations: 18 (Rochelle Cabrera, RN) Temperature (F): 98.3 (Rochelle Hernandeznd, RN) Temperature (C): 36.8 (QS system process) Temperature Route: Axillary (Rochelle Olivern Deborah, RN) Uterine Activity Monitor Mode: Internal (Rochelle Cabrera, RN) Frequency (min): 2-2.5 (Rochelle Cabrera, RN) Quality: Moderate (Rochelle Sánchezlund, RN) Duration (sec): 60-65 (Rochelle Sánchezlund, RN) Resting Tone (Palpate): Relaxed (Rochelle Cabrera, RN) Assessment A Monitor Mode: Internal Scalp Electrode (Rochelle Cabrera, RN) FHR Baseline Rate : 155 (Rochelle Hernandeznd, RN) FHR Baseline Changes: No Baseline Change (Rochelle Cabrera, RN) Variability: Moderate 6-25 bpm (Rochelle Cabrera, RN) Accelerations: 15X15 (Rochelle Cabrera, RN) Decelerations: None (Rochelle Cabrera, RN) Pain Relief Measures: Comfort Measures (Rochelle Cabrera, RN) Pain Coping: Talking Through Contractions (Rochelle Cabrera, RN) Medications Pitocin (milliunit): Pitocin Remains (milliunits) @ 20 (Rochelle Cabrera, RN) Patient Care IV/Blood Work: IV Infusing per Order (Rochelle Cabrera, RN) Patient Position/Activity: Left Extreme; Peanut Ball (Rochelle Cabrera, RN) Comfort Measures: Family Support (Rochelle Cabrera, RN) Communication Communication: RN at Bedside; RN Reviewed Strip (oRchelle Oliverdavid Cabrera, RN) LaborFlag: Labor (QS system process) Datetime: 06/05/2016 17:42 NBP Sys/Iris/Mean (mmHg): 112 (QS system process) : 65 (QS system process) : 83 (QS system process) Pulse: 109 (QS system process) LaborFlag: Labor (QS system process) Datetime: 06/05/2016 17:38 NBP Sys/Iris/Mean (mmHg): 123 (QS system process) : 58 (QS system process) : 77 (QS system process) Pulse: 114 (QS system process) LaborFlag: Labor (QS system process) Datetime: 06/05/2016 17:33 Vital Signs Stage of : Labor (Rochelle Cabrera RN) Monitor Interventions for UA: IUPC Inserted (Rochelle Cabrera RN) Vaginal Exam Dilatation (cm): 4.0 (Rochelle Cabrera RN) Effacement (%): 50 (Rochelle Cabrera RN) Station: -2 (Rochelle Cabrera RN) Exam by: Vivian BAL CNM (Rochelle Cabrera RN) Vaginal Bleeding: Scant (Rochelle Cabrera RN) Cervix, Consistency: Soft (Rochelle Cabrera RN) Cervix, Position: Midposition (Rochelle Cabrera RN) Procedures: Sterile Vag Exam (Rochelle Cabrera RN) Provider Reviewed Strip: Yes (Rochelle Cabrera RN) Communication Communication: RN at Bedside; RN Reviewed Strip; Provider at Bedside (Rochelle Cabrera RN) Datetime: 06/05/2016 17:31 NBP Sys/Iris/Mean (mmHg): 125 (QS system process) : 70 (QS system process) : 87 (QS system process) Pulse: 94 (QS system process) LaborFlag: Labor (QS system process) Datetime: 06/05/2016 17:30 Vital Signs Stage of : Labor (Rochelle Carine Roulund, RN) Respirations: 18 (Rochelle Carine Roulund, RN) Uterine Activity Monitor Mode: External (Rochelle Carine Roulund, RN) Frequency (min): 2-3 (Rochelle Carine Roulund, RN) Quality: Moderate (Rochelle Carine Roulund, RN) Duration (sec): 55-65 (Rochelle Carine Roulund, RN) Resting Tone (Palpate): Relaxed (Rochelle Carine Roulund, RN) Assessment A Monitor Mode: Internal Scalp Electrode (Rochelle Cabrera, RN) FHR Baseline Rate : 155 (Rochelle Cabrera, RN) FHR Baseline Changes: No Baseline Change (Rochelle Cabrera, RN) Variability: Moderate 6-25 bpm (Rochelle Cabrera, RN) Accelerations: 10X10 (Rochelle Cabrera, RN) Decelerations: Variable (Rochelle Cabrera, RN) Pain Pain Scale: 1 (Rochelle Cabrera, ) Pain Presence: None/Denies (Rochelle Cabrera, RN) Pain Type: N/A (Rochelle Cabrera, ) Pain Relief Measures: Comfort Measures (Rochelle Cabrera, ) Pain Coping: Talking Through Contractions (Rochelle Cabrera, ) Medications Pitocin (milliunit): Pitocin Remains (milliunits) @ 20 (Rochelle Cabrera, RN) Patient Care IV/Blood Work: IV Infusing per Order (Rochelle Cabrera, JEFFREY) Patient Position/Activity: Left Extreme; Peanut Ball (Rochelle Cabrera RN) Comfort Measures: Family Support (Rochelle Cabrera RN) I/O Interventions: Ice Chips Given (Rochelle Cabrera, JEFFREY) Communication Communication: RN at Bedside; RN Reviewed Strip (Rochelle Cabrera, RN) LaborFlag: Labor (QS system process) Datetime: 06/05/2016 17:26 NBP Sys/Iris/Mean (mmHg): 125 (QS system process) : 73 (QS system process) : 92 (QS system process) Pulse: 110 (QS system process) LaborFlag: Labor (QS system process) Datetime: 06/05/2016 17:22 NBP Sys/Iris/Mean (mmHg): 122 (QS system process) : 67 (QS system process) : 86 (QS system process) Pulse: 86 (QS system process) LaborFlag: Labor (QS system process) Datetime: 06/05/2016 17:17 NBP Sys/Iris/Mean (mmHg): 134 (QS system process) : 64 (QS system process) : 90 (QS system process) Pulse: 93 (QS system process) LaborFlag: Labor (QS system process) Datetime: 06/05/2016 17:15 Vital Signs Stage of : Labor (Rochelle Cabrera RN) Respirations: 18 (Rochelle Cabrera RN) Uterine Activity Monitor Mode: External (Rochelle Cabrera RN) Monitor Interventions for UA: [place] Adjusted (Rochelle Cabrera RN) Frequency (min): 2-3 (Rochelle Cabrera RN) Quality: Moderate (Rochelle Cabrera RN) Duration (sec): 50-60 (Rochelle Carine Roulund, RN) Resting Tone (Palpate): Relaxed (Rochelle Carinedavid Cabrera, RN) Assessment A Monitor Mode: Internal Scalp Electrode (Rochelle Cabrera, RN) FHR Baseline Rate : 145 (Rochelle Cabrera, RN) FHR Baseline Changes: No Baseline Change (Rochelle Cabrera, RN) Variability: Moderate 6-25 bpm (Rochelle Sánchezluvivian, RN) Accelerations: 15X15 (Rcohelle Cabrera, RN) Decelerations: None (Rochelle Cabrera, RN) Pain Relief Measures: Comfort Measures (Rochelle Sánchezluvivian, RN) Pain Coping: Talking Through Contractions (Rochelle Cabrera, RN) Medications Pitocin (milliunit): Pitocin Remains (milliunits) @ 20 (Rochelle Oliverdavid Sánchezluvivian, RN) Patient Care IV/Blood Work: IV Infusing per Order (Rochelle Cabrera RN) Patient Position/Activity: Left Extreme; Peanut Ball (Rochelle Cabrera RN) Comfort Measures: Family Support (Rochelle Cabrera RN) Provider Reviewed Strip: Yes (Rochelle Cabrera RN) Communication Communication: RN at Bedside; RN Reviewed Strip (Rochelle Cabrera RN) LaborFlag: Labor (QS system process) Datetime: 06/05/2016 17:11 NBP Sys/Iris/Mean (mmHg): 106 (QS system process) : 51 (QS system process) : 73 (QS system process) Pulse: 96 (QS system process) LaborFlag: Labor (QS system process) Datetime: 06/05/2016 17:06 NBP Sys/Iris/Mean (mmHg): 111 (QS system process) : 54 (QS system process) : 78 (QS system process) Pulse: 96 (QS system process) LaborFlag: Labor (QS system process) Datetime: 06/05/2016 17:03 NBP Sys/Iris/Mean (mmHg): 109 (QS system process) : 53 (QS system process) : 77 (QS system process) Pulse: 98 (QS system process) LaborFlag: Labor (QS system process) Datetime: 06/05/2016 17:00 Vital Signs Stage of : Labor (Rochelle Cabrera, RN) Respirations: 18 (Rochelle Oliverdavid Cabrera, RN) Uterine Activity Monitor Mode: External; Palpation (Rochelle Cabrera, RN) Frequency (min): 2.5-3 (Rochelle Cabrera, RN) Quality: Moderate (Rochelle Cabrera, RN) Duration (sec): 50-60 (Rochelle Cabrera, RN) Resting Tone (Palpate): Relaxed (Rochelle Cabrera, RN) Assessment A Monitor Mode: External US (Rochelle Cabrera, RN) FHR Baseline Rate : 145 (Rochelle Cabrera, RN) FHR Baseline Changes: No Baseline Change (Rochelle Cabrera, RN) Variability: Moderate 6-25 bpm (Rochelle Cabrera, RN) Accelerations: 15X15 (Rochelle Cabrera, RN) Decelerations: None (Rochelle Cabrera, RN) Pain Relief Measures: Comfort Measures (Rochelle Cabrera, RN) Pain Coping: Talking Through Contractions (Rochelle Cabrera, RN) Medications Pitocin (milliunit): Pitocin Increased to (milliunits) @ 20 (Rochelle Cabrera, RN) Patient Care IV/Blood Work: IV Infusing per Order (Rochelle Carine Roulund, RN) Patient Position/Activity: Peanut Ball; Right Extreme (Rochelle Cabrera, RN) Comfort Measures: Family Support (Rochelle Cabrera, RN) Communication Communication: RN at Bedside; RN Reviewed Strip (Rochelle Cabrera, RN) LaborFlag: Labor (QS system process) Datetime: 06/05/2016 16:56 NBP Sys/Iris/Mean (mmHg): 112 (QS system process) : 56 (QS system process) : 80 (QS system process) Pulse: 95 (QS system process) LaborFlag: Labor (QS system process) Datetime: 06/05/2016 16:55 NBP Sys/Iris/Mean (mmHg): 114 (QS system process) : 56 (QS system process) : 80 (QS system process) Pulse: 99 (QS system process) LaborFlag: Labor (QS system process) Datetime: 06/05/2016 16:54 NBP Sys/Iris/Mean (mmHg): 111 (QS system process) : 56 (QS system process) : 80 (QS system process) Pulse: 105 (QS system process) LaborFlag: Labor (QS system process) Datetime: 06/05/2016 16:52 NBP Sys/Iris/Mean (mmHg): 113 (QS system process) : 53 (QS system process) : 77 (QS system process) Pulse: 100 (QS system process) LaborFlag: Labor (QS system process) Datetime: 06/05/2016 16:51 NBP Sys/Iris/Mean (mmHg): 113 (QS system process) : 55 (QS system process) : 77 (QS system process) LaborFlag: Labor (QS system process) Datetime: 06/05/2016 16:50 NBP Sys/Iris/Mean (mmHg): 107 (QS system process) : 58 (QS system process) : 74 (QS system process) Pulse: 115 (QS system process) Anesthesia Interventions Other: Ephedrine (Rochelle Cabrera RN) Anesthesia Comments: 5 MG (Rochelle Cabrera RN) LaborFlag: Labor (QS system process) Datetime: 06/05/2016 16:49 NBP Sys/Iris/Mean (mmHg): 97 (QS system process) : 59 (QS system process) : 73 (QS system process) Pulse: 118 (QS system process) LaborFlag: Labor (QS system process) Datetime: 06/05/2016 16:48 NBP Sys/Iris/Mean (mmHg): 94 (QS system process) : 52 (QS system process) : 70 (QS system process) Pulse: 116 (QS system process) LaborFlag: Labor (QS system process) Datetime: 06/05/2016 16:47 NBP Sys/Iris/Mean (mmHg): 94 (QS system process) : 50 (QS system process) : 65 (QS system process) Pulse: 100 (QS system process) Anesthesia Interventions Other: Ephedrine (Rochelle Cabrera RN) Anesthesia Comments: 5MG (Rochelle Cabrera RN) LaborFlag: Labor (QS system process) Datetime: 06/05/2016 16:46 NBP Sys/Iris/Mean (mmHg): 98 (QS system process) : 53 (QS system process) : 70 (QS system process) Pulse: 92 (QS system process) LaborFlag: Labor (QS system process) Datetime: 06/05/2016 16:45 Vital Signs Stage of : Labor (Rochelle Cabrera RN) NBP Sys/Iris/Mean (mmHg): 107 (QS system process) : 52 (QS system process) : 67 (QS system process) Pulse: 97 (QS system process) Respirations: 18 (Rochelle Cabrera RN) Uterine Activity Monitor Mode: External (Rochelle Cabrera RN) Monitor Interventions for UA: [place] Adjusted (Rochelle Cabrera RN) Frequency (min): 2.5-3 (Rochelle Cabrera RN) Quality: Moderate (Rochelle Cabrera RN) Duration (sec): 50-60 (Rochelle Cabrera RN) Resting Tone (Palpate): Relaxed (Rochelle Cabrera RN) Assessment A Monitor Mode: Internal Scalp Electrode (Rochelle Cabrera, JEFFREY) FHR Baseline Rate : 145 (Rochelle Cabrera RN) FHR Baseline Changes: No Baseline Change (Rochelle Cabrera RN) Variability: Moderate 6-25 bpm (Rochelle Cabrera RN) Decelerations: Late; Variable (Rochelle Cabrera RN) Pain Relief Measures: Comfort Measures (Rochelle Cabrera RN) Pain Coping: Talking Through Contractions (Rochelle Cabrera RN) Medications Pitocin (milliunit): Pitocin Increased to (milliunits) @ 18 (Rochelle Cabrera, RN) Patient Position/Activity: Peanut Ball; Right Extreme (Rochelle Cabrera, JEFFREY) Comfort Measures: Family Support (Rochelle Cabrera, JEFFREY) I/O Interventions: Clear Liquids Given (Rochelle Cabrera, RN) Communication Communication: RN at Bedside; RN Reviewed Strip (Rochelle Cabrera, RN) LaborFlag: Labor (QS system process) Datetime: 06/05/2016 16:42 NBP Sys/Iris/Mean (mmHg): 111 (QS system process) : 54 (QS system process) : 73 (QS system process) Pulse: 99 (QS system process) LaborFlag: Labor (QS system process) Datetime: 06/05/2016 16:40 Monitor Interventions for UA: [place] Adjusted (Rochelle Carine Roulund, RN) Datetime: 06/05/2016 16:38 NBP Sys/Iris/Mean (mmHg): 134 (QS system process) : 59 (QS system process) : 85 (QS system process) Pulse: 96 (QS system process) LaborFlag: Labor (QS system process) Datetime: 06/05/2016 16:36 NBP Sys/Iris/Mean (mmHg): 94 (QS system process) : 51 (QS system process) : 68 (QS system process) Pulse: 107 (QS system process) LaborFlag: Labor (QS system process) Datetime: 06/05/2016 16:35 Vital Signs Stage of : Labor (Rochelle Carine Cabrera, RN) Patient Position/Activity: Peanut Ball; Right Extreme (Rochelle Carine Hernandeznd, RN) Communication Communication: RN at Bedside; Provider at Bedside (Rochelle Carine Roulund, RN) Datetime: 06/05/2016 16:34 NBP Sys/Iris/Mean (mmHg): 115 (QS system process) : 61 (QS system process) : 80 (QS system process) Pulse: 101 (QS system process) LaborFlag: Labor (QS system process) Datetime: 06/05/2016 16:33 Vital Signs Stage of : Labor (Rochelle Cabrera RN) NBP Sys/Iris/Mean (mmHg): 128 (QS system process) : 69 (QS system process) : 90 (QS system process) Pulse: 88 (QS system process) Bedside Blood Glucose: 98 (Rochelle Cabrera RN) LaborFlag: Labor (QS system process) Datetime: 06/05/2016 16:31 NBP Sys/Iris/Mean (mmHg): 130 (QS system process) : 58 (QS system process) : 83 (QS system process) Pulse: 96 (QS system process) LaborFlag: Labor (QS system process) Datetime: 06/05/2016 16:30 Vital Signs Stage of : Labor (Rochelle Cabrera RN) NBP Sys/Iris/Mean (mmHg): 126 (QS system process) : 53 (QS system process) : 77 (QS system process) Pulse: 93 (QS system process) Respirations: 18 (Rochelle Cabrera, JEFFREY) Uterine Activity Monitor Mode: External (Rochelle Cabrera RN) Monitor Interventions for UA: [place] Adjusted (Rochelle Cabrera RN) Frequency (min): 2-3 (Rochelle Cabrera RN) Quality: Mild/Moderate (Rochelle Cabrera RN) Duration (sec): 60-70 (Rochelle Cabrera RN) Resting Tone (Palpate): Relaxed (Rochelle Cabrera, JEFFREY) Assessment A Monitor Mode: Internal Scalp Electrode (Rochelle Sánchezlund, RN) FHR Baseline Rate : 160 (Rochelle Sánchezlund, RN) FHR Baseline Changes: No Baseline Change (Rochelle Olivern Gonzaloluvivian, RN) Variability: Minimal - Undetectable to <=5 bpm (Rochelle Carine Roulund, RN) Accelerations: None (Rochellekenneth Hawk Roulund, RN) Decelerations: Late; Variable (Rochellekenneth Hawk Roulund, RN) Actions for Decelerations: IV Bolus (Rochelle Olivern Gonzalolund, RN) Pain Pain Scale: 0 (Rochelle Hawk Roulund, RN) Pain Presence: None/Denies (Rochellekenneth Hawk Roulund, RN) Pain Type: N/A (Rochelle Carine Roulund, RN) Pain Relief Measures: Comfort Measures (Rochelle Hawk Roulund, RN) Pain Coping: Talking Through Contractions (Rochelle Carinedavid Sánchezlund, RN) Medications Pitocin (milliunit): Pitocin Increased to (milliunits) @ 16 (Rochelle Cabrera, RN) Patient Position/Activity: Left Tilt; Low Fowlers (Rochelle Cabrera, RN) Comfort Measures: Family Support (Rochelle Cabrera, RN) I/O Interventions: Clear Liquids Given (Rochelle Cabrera, RN) Communication Communication: RN at Bedside; RN Reviewed Strip (Rochelle Cabrera, RN) LaborFlag: Labor (QS system process) Datetime: 06/05/2016 16:29 Vital Signs Stage of : Labor (Rochelle Cabrera, RN) Monitor Interventions for UA: [place] Adjusted (Rochelle Cabrera, RN) Communication Communication: RN at Bedside; RN Reviewed Strip; Provider at Bedside (Rochelle Cabrera, RN) Datetime: 06/05/2016 16:28 NBP Sys/Iris/Mean (mmHg): 122 (QS system process) : 56 (QS system process) : 80 (QS system process) Pulse: 99 (QS system process) Patient Position/Activity: Left Tilt; Low Fowlers (Rochelle Cabrera, RN) LaborFlag: Labor (QS system process) Datetime: 06/05/2016 16:27 Bedside Blood Glucose: 98 (QS system process) LaborFlag: Labor (QS system process) Datetime: 06/05/2016 16:26 NBP Sys/Iris/Mean (mmHg): 102 (QS system process) : 51 (QS system process) : 73 (QS system process) Pulse: 98 (QS system process) LaborFlag: Labor (QS system process) Datetime: 06/05/2016 16:25 NBP Sys/Iris/Mean (mmHg): 100 (QS system process) : 56 (QS system process) : 72 (QS system process) Pulse: 98 (QS system process) LaborFlag: Labor (QS system process) Datetime: 06/05/2016 16:23 NBP Sys/Iris/Mean (mmHg): 102 (QS system process) : 53 (QS system process) : 76 (QS system process) Pulse: 109 (QS system process) LaborFlag: Labor (QS system process) Datetime: 06/05/2016 16:22 Vital Signs Stage of : Labor (Rochelle Cabrera RN) NBP Sys/Iris/Mean (mmHg): 114 (QS system process) : 65 (QS system process) : 84 (QS system process) Pulse: 90 (QS system process) Monitor Interventions for FHR: FSE Applied (Rochelle Cabrera RN) Vaginal Exam Dilatation (cm): 4.0 (Rochelle Cabrera RN) Effacement (%): 50 (Rochelle Cabrera RN) Station: -2 (Rochelle Cabrera RN) Exam by: Vivian BAL CNM (Rochelle Cabrera RN) Membrane Status: Ruptured (Rochelle Cabrera RN) Amniotic Fluid Amount: Large (Rochelle Cabrera RN) Procedures: Sterile Vag Exam (Rochelle Cabrera RN) Provider Reviewed Strip: Yes (Rochelle Cabrera RN) Communication Communication: RN at Bedside; RN Reviewed Strip; Provider at Bedside (Rochelle Cabrera RN) LaborFlag: Labor (QS system process) Datetime: 06/05/2016 16:20 NBP Sys/Iris/Mean (mmHg): 103 (QS system process) : 54 (QS system process) : 66 (QS system process) Pulse: 95 (QS system process) I/O Interventions: Colon Cath Inserted (Rochelle Cabrera RN) LaborFlag: Labor (QS system process) Datetime: 06/05/2016 16:18 NBP Sys/Iris/Mean (mmHg): 118 (QS system process) : 54 (QS system process) : 78 (QS system process) Pulse: 112 (QS system process) LaborFlag: Labor (QS system process) Datetime: 06/05/2016 16:17 NBP Sys/Iris/Mean (mmHg): 118 (QS system process) : 54 (QS system process) : 78 (QS system process) Pulse: 112 (QS system process) LaborFlag: Labor (QS system process) Datetime: 06/05/2016 16:16 NBP Sys/Iris/Mean (mmHg): 117 (QS system process) : 59 (QS system process) : 80 (QS system process) Pulse: 118 (QS system process) LaborFlag: Labor (QS system process) Datetime: 06/05/2016 16:15 Vital Signs Stage of : Labor (Rochelle Cabrera, JEFFREY) Respirations: 18 (Rochelle Cabrera, RN) Uterine Activity Monitor Mode: External (Rochelle Cabrera, RN) Monitor Interventions for UA: [place] Adjusted (Rochelle Cabrera, RN) FHR Baseline Changes: Unable to Determine (Rochelle Sánchezluvivian, RN) Pain Pain Scale: 1 (Rochelle Cabrera, RN) Pain Presence: None/Denies (Rochelle Cabrera, RN) Pain Type: N/A (Rochelle Cabrera, RN) Pain Relief Measures: Epidural Given; Comfort Measures (Rochelle Sánchezluvivian, RN) Pain Coping: Talking Through Contractions (Rochelle Cabrera, RN) Medications Pitocin (milliunit): Pitocin Increased to (milliunits) @ 14 (Rochelle Cabrera, RN) Communication Communication: RN at Bedside; RN Reviewed Strip (Rochelle Cabrera, RN) LaborFlag: Labor (QS system process) Datetime: 06/05/2016 16:12 NBP Sys/Iris/Mean (mmHg): 125 (QS system process) : 72 (QS system process) : 88 (QS system process) Pulse: 116 (QS system process) LaborFlag: Labor (QS system process) Datetime: 06/05/2016 16:11 NBP Sys/Iris/Mean (mmHg): 133 (QS system process) : 68 (QS system process) : 91 (QS system process) Pulse: 108 (QS system process) LaborFlag: Labor (QS system process) Datetime: 06/05/2016 16:10 NBP Sys/Iris/Mean (mmHg): 132 (QS system process) : 63 (QS system process) : 90 (QS system process) Pulse: 116 (QS system process) Epidural Procedure: Loading Dose (Rochelle Cabrera RN) LaborFlag: Labor (QS system process) Datetime: 06/05/2016 16:09 NBP Sys/Iris/Mean (mmHg): 134 (QS system process) : 71 (QS system process) : 95 (QS system process) Pulse: 129 (QS system process) Epidural Procedure: Cath Placed (Rochelle Oliverdavid Cabrera, RN) LaborFlag: Labor (QS system process) Datetime: 06/05/2016 16:08 Anesthesia Anesthesia Plans: Epidural (Rochelle Cabrera, RN) Epidural Procedure: Test Dose (Rochelle Cabrera, RN) Datetime: 06/05/2016 16:00 Vital Signs Stage of : Labor (Rochelle Cabrera, JEFFREY) Uterine Activity Monitor Mode: External (Rochelle Cabrera RN) Resting Tone (Palpate): Relaxed (Rochelle Cabrera RN) Assessment A Monitor Mode: External US (Rochelle Cabrera RN) Monitor Interventions for FHR: Ultrasound Adjusted (Rochelle Cabrera RN) FHR Baseline Rate : 150 (Rochelle Cabrera RN) FHR Baseline Changes: No Baseline Change (Rochelle Cabrera RN) Variability: Moderate 6-25 bpm (Rochelle Carine Roulund, RN) Pain Pain Scale: 2 (Rochelle Oliveradvid Cabrera, RN) Pain Presence: Intermittent (Rochelle Carinedavid Cabrera, RN) Pain Type: Cramping (Rochelle Oliverdavid Cabrera, RN) Pain Location: Abdomen (Rochelle Cairnedavid Sánchezlund, RN) Pain Relief Measures: Comfort Measures (Rochelle Oliverdavid Sánchezlund, RN) Pain Coping: Talking Through Contractions (Rochelle Oliverdavid Cabrera, RN) Medications Pitocin (milliunit): Pitocin Increased to (milliunits) @ 12 (Rochelle Sánchezlund, RN) Patient Care IV/Blood Work: New IV Bag Hung (Rochelle Cabrera, RN) Comfort Measures: Family Support (Rochelle Cabrera, RN) Communication Communication: RN at Bedside; RN Reviewed Strip (Rochelle Cabrera, RN) LaborFlag: Labor (QS system process) Datetime: 06/05/2016 15:57 Vital Signs Stage of : Labor (Rochelle Carine Roujesusvivian, RN) Procedure TIME OUT Procedure Type: EPIDURAL (Rochelle Cabrera, RN) Procedure Verify: Correct Patient Identity; Correct Side and Site are Marked; Accurate Procedure Consent Form; Agreement on Procedure to be Done; Correct Patient Position; Relevant Images and Results are Properly Labeled and Displayed (Rochelle Carinedavid Cabrera, RN) Anesthesia Anesthesia Plans: Epidural (Rochelle Cabrera, RN) Epidural Positioning: Sitting (Rochelle Cabrera, RN) Anesthesia Comments: DR DUARTE @ (Rochelle Carine Gonzalonatty, RN) Communication Communication: RN at Bedside; RN Reviewed Strip; Provider at Bedside (Rochelle Cabrera RN) Datetime: 06/05/2016 15:46 Vital Signs Stage of : Labor (Rochelle Cabrera RN) Respirations: 18 (Rochelle Cabrera RN) Temperature (F): 98.3 (Rochelle Cabrera RN) Temperature (C): 36.8 (QS system process) Uterine Activity Monitor Mode: External (Rochelle Cabrera, RN) Monitor Interventions for UA: [place] Adjusted (Rochelle Cabrera, RN) Assessment A Monitor Mode: External US (Rochelle Cabrera, RN) FHR Baseline Rate : 150 (Rochelle Cabrera, RN) FHR Baseline Changes: No Baseline Change (Rochelle Cabrera, RN) Variability: Moderate 6-25 bpm (Rochelle Cabrera, RN) Accelerations: None (Rochelle Cabrera, RN) Decelerations: None (Rochelle Sánchezluvivian, RN) Pain Pain Scale: 2 (Rochelle Cabrera RN) Pain Presence: Intermittent (Rochelle Cabrera RN) Pain Type: Cramping (Rochelle Cabrera RN) Pain Location: Abdomen (Rochelle Cabrera RN) Pain Relief Measures: Comfort Measures (Rochelle Cabrera RN) Pain Coping: Talking Through Contractions (Rochelle Cabrera, RN) Medications Pitocin (milliunit): Pitocin Increased to (milliunits) @ 10 (Rochelle Cabrera, RN) Patient Care IV/Blood Work: New IV Bag Hung (Rochelle Cabrera, RN) Comfort Measures: Family Support (Rochelle Cabrera, RN) Patient Care Comments: SITTING UP FOR EPIDURAL (Rochelle Cabrera, RN) Procedure TIME OUT Procedure Type: EPIDURAL (Rochelle Cabrera, RN) Procedure Verify: Correct Patient Identity; Agreement on Procedure to be Done (Rochelle Cabrera, RN) Anesthesia Anesthesia Plans: Epidural (Rochelle Hawk Maryvivian, RN) Communication Communication: RN at Bedside; RN Reviewed Strip (Rochelle Cabrera, RN) LaborFlag: Labor (QS system process) Datetime: 06/05/2016 15:42 NBP Sys/Iris/Mean (mmHg): 135 (QS system process) : 79 (QS system process) : 98 (QS system process) Pulse: 106 (QS system process) LaborFlag: Labor (QS system process) Datetime: 06/05/2016 15:30 Vital Signs Stage of : Labor (Rochelle Cabrera RN) Respirations: 18 (Rochelle Cabrera, JEFFREY) Uterine Activity Monitor Mode: External (Rochelle Cabrera RN) Frequency (min): IRREG (Rochelle Cabrera RN) Quality: Mild (Rochelle Cabrera RN) Resting Tone (Palpate): Relaxed (Rochelle Cabrera RN) Assessment A Monitor Mode: External US (Rochelle Cabrera RN) Monitor Interventions for FHR: Ultrasound Adjusted (Rochelle Cabrera RN) FHR Baseline Rate : 150 (Rochelle Cabrera RN) FHR Baseline Changes: No Baseline Change (Rochelle Cabrera RN) Variability: Minimal - Undetectable to <=5 bpm (Rochelle Cabrera RN) Accelerations: None (Rochelle Cabrera RN) Decelerations: None (Rochelle Cabrera RN) Pain Relief Measures: Comfort Measures (Rochelle Cabrera RN) Pain Coping: Talking Through Contractions (Rochelle Cabrera RN) Medications Pitocin (milliunit): Pitocin Remains (milliunits) @ 8 (Rochelle Cabrera RN) Comfort Measures: Family Support (Rochelle Cabrera RN) Provider Reviewed Strip: Yes (Rochelle Oliverdavid Cabrera, RN) Patient Care Comments: SITTING UP FOR EPIDURAL (Rochelle Sánchezjesusvivian, RN) Procedure TIME OUT Procedure Type: EPIDURAL (Rcohelle Carinedavid Cabrera, RN) Procedure Verify: Correct Patient Identity; Agreement on Procedure to be Done; Relevant Images and Results are Properly Labeled and Displayed (Rochelle Oliverdavid Cabrera, RN) Anesthesia Anesthesia Plans: Epidural (Rochelle Carinedavid Cabrera, RN) Epidural Positioning: Sitting (Rochelle Oliverdavid Cabrera, RN) Communication Communication: RN at Bedside; RN Reviewed Strip; Provider at Bedside (Rochelle Cabrera, RN) LaborFlag: Labor (QS system process) Datetime: 06/05/2016 15:12 NBP Sys/Iris/Mean (mmHg): 129 (QS system process) : 76 (QS system process) : 89 (QS system process) Pulse: 93 (QS system process) LaborFlag: Antepartum (QS system process) Datetime: 06/05/2016 15:00 Vital Signs Stage of : Antepartum (Rochelle Cabrera RN) Respirations: 18 (Rochelle Cabrera, JEFFREY) Uterine Activity Monitor Mode: External (Rochelle Cabrera RN) Monitor Interventions for UA: [place] Adjusted (Rochelle Cabrera RN) Frequency (min): IRREG (Rochelle Cabrera RN) Quality: Mild (Rochelle Cabrera RN) Duration (sec): 60-70 (Rochelle Cabrera RN) Resting Tone (Palpate): Relaxed (Rochelle Cabrera, JEFFREY) Assessment A Monitor Mode: External US (Rochelle Cabrera RN) Monitor Interventions for FHR: Ultrasound Adjusted (Rochelle Cabrera RN) FHR Baseline Rate : 140 (Rochelle Cabrera RN) FHR Baseline Changes: No Baseline Change (Rochelle Cabrera RN) Variability: Moderate 6-25 bpm (Rochelle Cabrera RN) Accelerations: 15X15 (Rochelle Hernandeznd, RN) Decelerations: None (Rochelle Cabrera, RN) Pain Pain Scale: 1 (Rochelle Oliverdavid Cabrera, RN) Pain Presence: Intermittent (Rochelle Oliverdavid Cabrera, RN) Pain Type: Cramping (Rochelle Carinedavid Cabrera, RN) Pain Location: Abdomen (Rochelle Cabrera, RN) Pain Relief Measures: Comfort Measures (Rochelle Carinedavid Cabrera, RN) Pain Coping: Talking Through Contractions (Rochelle Sáncheznatty, ) Medications Pitocin (milliunit): Pitocin Increased to (milliunits) @ 6 (Rochelle Sáncheznatty, RN) Patient Care IV/Blood Work: IV Infusing per Order (Rochelle Olivern Gonzalojesusnd, RN) Patient Position/Activity: Right Lateral; Low Fowlers (Rochelle Olivern Gonzalolund, RN) Comfort Measures: Family Support (Rochelle Oliverdavid Cabrera, RN) Communication Communication: RN at Bedside; RN Reviewed Strip; Report Given to @ A EMMEL, CNM (Rochelle Olivern Gonzalonatty, RN) Notification Reason: Lab/Diagnostic Study (Rochelle Oliverdavid Cabrera, RN) LaborFlag: Antepartum (QS system process) Datetime: 06/05/2016 14:45 Vital Signs Stage of : Antepartum (Rochelle Cabrera, RN) Respirations: 18 (Rochelle Cabrera, RN) Uterine Activity Monitor Mode: External (Rochelle Cabrera, RN) Monitor Interventions for UA: [place] Adjusted (Rochelle Cabrera, RN) Frequency (min): IRREG (Rochelle Cabrera, RN) Quality: Mild (Rochelle Cabrera, RN) Duration (sec): 60-80 (Rochelle Cabrera, RN) Resting Tone (Palpate): Relaxed (Rochelle Cabrera, RN) Assessment A Monitor Mode: External US (Rochelle Cabrera, JEFFREY) Monitor Interventions for FHR: Ultrasound Adjusted (Rochelle Cabrera, RN) FHR Baseline Rate : 150 (Rochelle Cabrera, RN) FHR Baseline Changes: No Baseline Change (Rochelle Cabrera, RN) Variability: Moderate 6-25 bpm (Rochelle Cabrera, RN) Accelerations: 15X15 (Rochelle Cabrera, RN) Decelerations: None (Rochelle Cabrera, RN) Pain Relief Measures: Comfort Measures (Rochelle Cabrera, RN) Medications Pitocin (milliunit): Pitocin Increased to (milliunits) @ 4 (Rochelle Cabrera, RN) Patient Care IV/Blood Work: IV Infusing per Order (Rochelle Cabrera, RN) Patient Position/Activity: Right Lateral; Low Fowlers (Rochelle Cabrera, RN) Comfort Measures: Family Support (Rochelle Cabrera, RN) Communication Communication: RN at Bedside; RN Reviewed Strip (Rochelle Carine Roulund, RN) LaborFlag: Antepartum (QS system process) Datetime: 06/05/2016 14:42 NBP Sys/Iris/Mean (mmHg): 124 (QS system process) : 58 (QS system process) : 83 (QS system process) Pulse: 96 (QS system process) LaborFlag: Antepartum (QS system process) Datetime: 06/05/2016 14:34 Vital Signs Stage of : Antepartum (Rochelle Cabrera, RN) I/O Interventions: Up to BR (Rochelle Cabrera, RN) Communication Communication: RN at Bedside; RN Reviewed Strip (Rochelle Cabrera, RN) Datetime: 06/05/2016 14:28 Bedside Blood Glucose: 85 (QS system process) LaborFlag: Antepartum (QS system process) Datetime: 06/05/2016 14:26 Vital Signs Stage of : Antepartum (Rochelle Cabrera RN) Respirations: 18 (Rochelle Cabrera, JEFFREY) Uterine Activity Monitor Mode: External (Rochelle Cabrera RN) Monitor Interventions for UA: [place] Adjusted (Rochelle Cabrera, JEFFREY) Frequency (min): IRREG (Rochelle Cabrera RN) Quality: Mild (Rochelle Cabrera RN) Duration (sec): 60-80 (Rochelle Cabrera RN) Resting Tone (Palpate): Relaxed (Rochelle Cabrera RN) Assessment A Monitor Mode: External US (Rochelle Cabrera, JEFFREY) Monitor Interventions for FHR: Ultrasound Adjusted (Rochelle Cabrera, JEFFREY) FHR Baseline Rate : 135 (Rochelle Cabrera RN) FHR Baseline Changes: No Baseline Change (Rochelle Cabrera, JEFFREY) Variability: Moderate 6-25 bpm (Rochelle Cabrera, JEFFREY) Accelerations: 15X15 (Rochelle Cabrera, JEFFREY) Decelerations: None (Rochelle Cabrera, JEFFREY) Pain Relief Measures: Comfort Measures (Rochelle Cabrera, JEFFREY) Pain Coping: Talking Through Contractions (Rochelle Cabrera, JEFFREY) Medications Pitocin (milliunit): Pitocin Started (milliunits) @ 2 (Rochelle Cabrera, JEFFREY) Patient Care IV/Blood Work: IV Infusing per Order (Rochelle Cabrera, RN) Patient Position/Activity: Right Lateral; Low Fowlers (Rochelle Cabrera, RN) Comfort Measures: Family Support (Rochelle Cabrera, RN) Communication Communication: RN at Bedside; RN Reviewed Strip (Rochelle Cabrera, RN) LaborFlag: Antepartum (QS system process) Datetime: 06/05/2016 14:15 Vital Signs Stage of : Antepartum (Rochelle Cabrera RN) NBP Sys/Iris/Mean (mmHg): 103 (QS system process) : 56 (QS system process) : 73 (QS system process) Pulse: 93 (QS system process) SpO2 (%): 18 (Rochelle Cabrera RN) Bedside Blood Glucose: 85 (Rochelle Cabrera RN) LaborFlag: Antepartum (QS system process) Datetime: 06/05/2016 14:08 NBP Sys/Iris/Mean (mmHg): 109 (QS system process) : 59 (QS system process) : 79 (QS system process) Pulse: 90 (QS system process) LaborFlag: Antepartum (QS system process) Datetime: 06/05/2016 13:58 Patient Care IV/Blood Work: Labs Drawn (Rochellekenneth Cabrera, RN) Datetime: 06/05/2016 13:45 Vital Signs Stage of : Antepartum (Rochellekenneth Cabrera, RN) Respirations: 18 (Rochellekenneth Cabrera, RN) Uterine Activity Monitor Mode: External (Rochelle Cabrera, RN) Monitor Interventions for UA: [place] Adjusted (Rochelle Cabrera, RN) Frequency (min): NONE (Rochelle Cabrera, RN) Resting Tone (Palpate): Relaxed (Rochelle Cabrera, RN) Assessment A Monitor Mode: External US (Rochelle Cabrera, RN) Monitor Interventions for FHR: Ultrasound Adjusted (Rochelle Cabrera, RN) FHR Baseline Rate : 145 (Rochelle Cabrera, RN) FHR Baseline Changes: No Baseline Change (Rochelle Cabrera, RN) Variability: Moderate 6-25 bpm (Rochelle Cabrera, RN) Accelerations: None (Rochelle Cabrera, RN) Decelerations: None (Rochelle Cabrera, RN) Pain Relief Measures: Comfort Measures (Rochelle Cabrera, RN) Patient Care IV/Blood Work: IV Infusing per Order (Rochelle Cabrera, RN) Procedures: Consents Signed (Rochelle Cabrera, RN) Patient Position/Activity: Right Lateral; Low Fowlers (Rochelle Cabrera, RN) Comfort Measures: Family Support (Rochelle Cabrera, RN) Communication Communication: RN at Bedside; RN Reviewed Strip (Rochelle Carinedavid Cabrera, RN) LaborFlag: Antepartum (QS system process) Datetime: 06/05/2016 13:30 Patient Care Comments: BEDSIDE U/S (Rochelle Cabrera, RN) Datetime: 06/05/2016 13:24 Vital Signs Stage of : Antepartum (Rochelle Cabrera, RN) I/O Interventions: Up to BR (Rochelle Cabrera, RN) Provider Reviewed Strip: Yes (Rochelle Cabrera, RN) Communication Communication: RN at Bedside; RN Reviewed Strip (Rochelle Cabrera, RN) Datetime: 06/05/2016 13:15 Vital Signs Stage of : Antepartum (Rochelle Cabrera, RN) NBP Sys/Iris/Mean (mmHg): 115 (QS system process) : 59 (QS system process) : 78 (QS system process) Pulse: 88 (QS system process) Respirations: 18 (Rochelle Olivern Gonzalonatty, RN) Uterine Activity Monitor Mode: External (Rochelle Cabrera, RN) Frequency (min): NONE (Rochelle Oliverdavid Cabrera, RN) Resting Tone (Palpate): Relaxed (Rochelle Olivern Gonzalolund, RN) Assessment A Monitor Mode: External US (Rochelle Cabrera RN) FHR Baseline Rate : 135 (Rochelle Cabrera RN) FHR Baseline Changes: No Baseline Change (Rochelle Cabrera RN) Variability: Moderate 6-25 bpm (Rochelle Cabrera RN) Accelerations: 15X15 (Rochelle Cabrera RN) Decelerations: None (Rochelle Cabrera RN) Pain Relief Measures: Comfort Measures (Rochelle Cabrera RN) Patient Position/Activity: Right Lateral; Low Fowlers (Rochelle Cabrera RN) Comfort Measures: Family Support (Rochelle Cabrera RN) Communication Communication: RN at Bedside; RN Reviewed Strip (Rochelle Cabrera RN) LaborFlag: Antepartum (QS system process) Datetime: 06/05/2016 13:10 Patient Care IV/Blood Work: IV Started; IV Bolus Started (Na Camp, RNC) Datetime: 06/05/2016 12:51 NBP Sys/Iris/Mean (mmHg): 118 (QS system process) : 56 (QS system process) : 80 (QS system process) Pulse: 88 (QS system process) LaborFlag: Antepartum (QS system process) Datetime: 06/05/2016 12:47 Vital Signs Stage of : Antepartum (Rochelle Cabrera RN) Vaginal Exam Dilatation (cm): 3.0 (Rochelle Cabrera RN) Effacement (%): 25 (Rochelle Cabrera RN) Station: -2 (Rochelle Cabrera RN) Exam by: Vivian BAL CNM (Rochelle Cabrera RN) Membrane Status: Ruptured (Rochelle Cabrera RN) Membranes Rupture Method: Spontaneous (Rochelle Cabrera RN) Amniotic Fluid Color: Clear (Rochelle Cabrera RN) Procedures: Sterile Vag Exam (Rochelle Cabrera RN) Provider Reviewed Strip: Yes (Rochelle Cabrera RN) Communication Communication: RN at Bedside; RN Reviewed Strip; Provider at Bedside (Rochelle Carinedavid Cabrera, RN) Datetime: 06/05/2016 12:45 Vital Signs Stage of : Antepartum (Rochelle Carinedavid Cabrera, RN) Uterine Activity Monitor Mode: External (Rochelle Cabrera, JEFFREY) Monitor Interventions for UA: [place] Adjusted (Rochelle Cabrera, RN) Frequency (min): NONE (Rochelle Cabrera, RN) Resting Tone (Palpate): Relaxed (Rochelle Cabrera, RN) Assessment A Monitor Mode: External US (Rochelle Cabrera RN) Monitor Interventions for FHR: Ultrasound Adjusted (Rochelle Cabrera, RN) FHR Baseline Rate : 140 (Rochelle Cabrera RN) FHR Baseline Changes: No Baseline Change (Rochelle Cabrera RN) Variability: Moderate 6-25 bpm (Rochelle Cabrera, RN) Accelerations: 15X15 (Rochelle Cabrera, RN) Decelerations: None (Rochelle Cabrera, RN) Pain Relief Measures: Comfort Measures (Rochelle Cabrera, RN) Patient Position/Activity: Right Lateral; Low Fowlers (Rochelle Cabrera, RN) Comfort Measures: Family Support (Rochelle Cabrera, RN) Communication Communication: RN at Bedside; RN Reviewed Strip (Rochelle Cabrera, RN) LaborFlag: Antepartum (QS system process) Datetime: 06/05/2016 12:32 Vital Signs Stage of : Antepartum (Rochelle Cabrera, RN) I/O Interventions: Up to BR (Rochelle Cabrera, RN) Communication Communication: RN at Bedside; RN Reviewed Strip (Rochelle Oliverdavid Cabrera, RN) Datetime: 06/05/2016 12:15 Vital Signs Stage of : Antepartum (Rochellekenneth Cabrera, RN) NBP Sys/Iris/Mean (mmHg): 119 (QS system process) : 63 (QS system process) : 79 (QS system process) Pulse: 92 (QS system process) Respirations: 18 (Rochelle Cabrera, RN) Uterine Activity Monitor Mode: External (Rochelle Cabrera, JEFFREY) Frequency (min): NONE (Rochelle Cabrera, JEFFREY) Resting Tone (Palpate): Relaxed (Rochelle Cabrera, RN) Assessment A Monitor Mode: External US (Rochelle Cabrera RN) FHR Baseline Rate : 145 (Rochelle Cabrera RN) FHR Baseline Changes: No Baseline Change (Rochelle Cabrera, JEFFREY) Variability: Moderate 6-25 bpm (Rochelle Cabrera, RN) Accelerations: 15X15 (Rochelle Cabrera, RN) Decelerations: None (Rochelle Cabrera, RN) Pain Relief Measures: Comfort Measures (Rochelle Cabrera, RN) Membrane Status: Ruptured (Rochelle Cabrera, RN) Membranes Rupture Method: Spontaneous (Rochelle Cabrera, JEFFREY) Amniotic Fluid Color: Clear (Rochelle Cabrera, JEFFREY) Patient Position/Activity: Right Lateral; Low Fowlers (Rochelle Cabrera, RN) Comfort Measures: Family Support (Rochelle Cabrera, RN) Communication Communication: RN at Bedside; RN Reviewed Strip (Rochelle Cabrera, RN) LaborFlag: Antepartum (QS system process) Datetime: 06/05/2016 11:50 Vital Signs Stage of : Antepartum (Rochellekenneth Cabrera, RN) Uterine Activity Monitor Mode: External (Rochellekenneth Cabrera, RN) Monitor Interventions for UA: [place] Adjusted (Rochelle Cabrera RN) Resting Tone (Palpate): Relaxed (Rochelle Cabrera RN) Assessment A Monitor Mode: External US (Rochelle Cabrera RN) Monitor Interventions for FHR: Ultrasound Adjusted (Rochelle Cabrera RN) FHR Baseline Rate : 145 (Rochelle Cabrera RN) Variability: Moderate 6-25 bpm (Rochelle Cabrera RN) Pain Pain Scale: 0 (Rochelle Cabrera RN) Pain Presence: None/Denies (Rochelle Cabrera RN) Pain Type: N/A (Rochelle Cabrera RN) Pain Goal: 1 (Rochelle Cabrera RN) Pain Relief Measures: Comfort Measures (Rochelle Cabrera RN) Vaginal Bleeding: None (Rochelle Cabrera RN) Maternal Assessment Level of Consciousness: Fully Conscious (Rochelle Cabrera RN) DTR's/Clonus: DTRs 1+; No Clonus (Rochelle Cabrera RN) Headache: Generalized (Rochelle Cabrera RN) Breath Sounds, Left: Clear and Equal (Rochelle Cabrera RN) Breath Sounds, Right: Clear and Equal (Rochelle Cabrera RN) Nausea/Vomiting: Present (Rochelle Cabrera RN) RUQ Epigastric Pain: Denies (Rochelle Cabrera RN) Patient Position/Activity: Right Lateral; Low Fowlers (Rochelle Cabrera RN) Comfort Measures: Family Support (Rochelle Cabrera RN) I/O Interventions: Clear Liquids Given; Up to BR (Rochelle Cabrera RN) Teaching Instructional Method: Verbal; Patient Instructed; Family/Support Person Instructed; Verbalized Understanding (Rochelle Cabrera RN) Plan of Care: Plan of Care Discussed (Rochelle Cabrera RN) Unit Routine: [place] to Room; Call Zambrano; Bed; Phone/Cell Phone Use; Unit Personnel; Handwashing; Monitoring; Safety/Fall Risk Prevention; Diet/Nutrition Services; Bathroom Privileges (Rochelle Cabrera RN) Pain Management: Pain Scale/Goals; Comfort Measures (Rochelle Cabrera RN) Related: Common Discomforts of ; Maternal Physical Changes; Maternal Emotional Changes; Nutrition; Hydration; Activity and Rest (Rochelle Cabrera RN) Communication Communication: RN at Bedside; RN Reviewed Strip (Rochelle Cabrera RN) LaborFlag: Antepartum (QS system process) Datetime: 06/05/2016 11:47 Vital Signs Stage of : Antepartum (Rochelle Cabrera RN) Respirations: 18 (Rochelle Cabrera RN) Temperature (F): 98.0 (Rochelle Cabrera, JEFFREY) Temperature (C): 36.7 (QS system process) Uterine Activity Monitor Mode: External (Rochelle Cabrera RN) Monitor Interventions for UA: [place] Adjusted (Rochelle Cabrera, JEFFREY) Resting Tone (Palpate): Relaxed (Rochelle Cabrera, JEFFREY) Assessment A Monitor Mode: External US (Rochelle Cabrera RN) Monitor Interventions for FHR: Ultrasound Adjusted (Rochelle Cabrera RN) FHR Baseline Rate : 145 (Rochelle Cabrera, JEFFREY) Pain Pain Scale: 0 (Rochelle Cabrera RN) Pain Presence: None/Denies (Rochelle Cabrera RN) Pain Type: N/A (Rochelle Cabrera RN) Pain Relief Measures: Comfort Measures (Rochelle Cabrera RN) Patient Position/Activity: Right Lateral (Rochelle Cabrera RN) Comfort Measures: Family Support (Rochelle Cabrera RN) I/O Interventions: Up to BR (Rochelle Cabrera RN) Communication Communication: RN at Bedside; RN Reviewed Strip (Rochelle Cabrera, JEFFREY) LaborFlag: Antepartum (QS system process) Datetime: 05/02/2016 18:01 Temperature (C): 36.8 (QS system process) Datetime: 03/25/2016 17:10 Membranes Ruptured Date/Time: 06/05/2016 08:00 (Rochelle Cabrera RN) Amniotic Fluid Amount: Small (Rochelle Cabrera RN)
[2016-06-05] MEDS ORDERED: BENZOCAINE/MENTHOL AEROSOL SPRAY 56 ML TOP PRN (23:49)
[2016-06-05] MEDS ORDERED: DIPH/PERTUSS(ACELL)/TETANUS VAC/PF 0.5 ML SYR (>=10YO) IM PRN (23:49)
[2016-06-05] MEDS ORDERED: ACETAMINOPHEN WITH CODEINE #3 TABLET PO PRN (23:49)
[2016-06-05] MEDS ORDERED: MEASLES,MUMPS&RUBELLA VACC/PF 0.5 ML VIAL SUBCUT PRN (23:49)
[2016-06-05] MEDS ORDERED: ZOLPIDEM TARTRATE 5 MG TABLET PO PRN (23:49)
[2016-06-05] MEDS ORDERED: DIBUCAINE 1% OINTMENT 28 GM TP PRN (23:49)
[2016-06-06] MEDS ORDERED: IBUPROFEN 800 MG TABLET ONE (00:53)
--- NOTE | 2016-06-06 01:47 | Admission Physical ---
Datetime Report Generated by CPN: 06/06/2016 01:47 CURRENT ADMISSION Chief Complaint: Suspected Ruptured Membranes ALLERGIES Medication Allergies: No Medication Allergies: NKDA Latex: No Latex Allergies Environmental Allergies: cats, dogs, seasonal OBSTETRICAL HISTORY EDC: 06/19/2016 00:00 : 7 Para: 3 Para: 3 Term: 3 : 0 SAB: 0 IAB: 3 Ectopic: 0 Livin Cesareans: 0 VBACs: 0 Multiple Births: 0 Gestational Diabetes: Yes Rh Sensitization: No Incompetent Cervix: No ADRIÁN: No Infertility: No ART Treatment: No Uterine Anomaly: No IUGR: No Hx Previous C/S: No Macrosomia: No Hx Loss/Stillborn: No PIH: No Hx : No Placenta Previa/Abruption: Yes Depression/PP Depression: Yes PTL/PROM: No Post Hemorrhage: No Current Procedures: Ultrasound Obstetrical History Comments: G1: EAB 1995 G2: 1997, episiotomy G3: EAB 2000 G4: 2001 G5: 2008 G6: EAB 2015 G7: current, GDM, placenta previa (resolved), heart palpitations, SOB SEE RECORDS Alcohol: No Marijuana : No Cocaine: No Other Illicit Drugs: No Cigarettes: Former Smoker. [id number] MEDICAL HISTORY Diabetes: Yes Diabetes Type: Gestational Diabetes Blood Transfusion: No Pulmonary Disease (Asthma, TB): Yes Breast Disease: No Hypertension: No Building Coordinator Surgery: No Heart Disease: Yes Hosp/Surgery: Yes Autoimmune Disorder: No Anesthetic Complications: No Kidney Disease: No Abnormal Pap Smear: Yes Neuro/Epilepsy: No Psychiatric Disorders: No Other Medical Diseases: No Hepatitis/Liver Disease: No Significant Family History: No Varicosities/Phlebitis: No Trauma/Violence : No Thyroid Dysfunction: Yes Medical History Comments: laparotomy - 1 fallopian tube and ovary removed in 2010, currently wearing holter monitor, echocardiogram, undiagnosed pp depression, hypothyroid, shortness of breath, palpitations, ADD, anxiety, childhood asthma, gall bladder removed 2002, abnl pap, LEEP, GERD, rosacea, lower back degeneration, GDM, ITP INFECTIOUS HISTORY Gonorrhea: No Genital Herpes: No Chlamydia: Yes Tuberculosis: No Syphilis: No Hepatitis: No HIV/AIDS Exposure: No Rash or Viral Illness: No HPV: No Infectious History Comments: Chlamydia - 1997 treated Trich - 1995 treated Trich - 2014 treated PHYSICAL EXAM General: Normal HEENT: Normal Neurologic: Normal Thyroid: Normal Heart: Normal Lungs: Normal Breast: Normal Back: Normal Abdomen: Normal Genitourinary Exam: Normal Extremities: Normal DTRs: Normal Pelvic Type: Adequate Vital Signs: Reviewed VAGINAL EXAM Dilatation: 3 Effacement: 25 Station: -2 FETUS A EGA: 38.0 Monitoring: External US Accelerations: 15X15 Decelerations: None FHR Category: Category I Estimated Weight (gm): 4000 Presentation: Vertex Admit Comment: 35 yo presents with ROM since 08 this morning extensive history GDM- has taken Metformin with no change, now on glyburide 1.25 mg po qam and qpm ITP of - seen by Dr. Saleh and started steroid use yesterday - only 3 doses proven pelvis for 9lb 5 oz NKDA AMA Hypothyroidism Obesity admit amnisure for confirmation EFW- pt concerned with vaginal delivery and internal hemorrhoids. Pt would like the option of general anesthesia if epidural not available risks and benefits reviewed with pt and spouse labs drawn Anesthesia consult ok to do epidural start pitocin per protocol pt reassured anticipate PLANS FOR LABOR AND DELIVERY Labor and Delivery: None Pain Management: Epidural Feeding Preference: Breast Benefit of Breast Feed Discussed: Yes Circumcision: N/A INFORMED CONSENT Assignment: Tiara Muñoz MD Signature: with User ID: [email or web address] : with User ID: [email or web address]
--- NOTE | 2016-06-06 01:48 | Delivery Summary ---
Del Sum A-C Datetime Report Generated by CPN: 06/06/2016 01:48 DELIVERY PERSONNEL DELIVERY PERSONNEL: [id number];[id number] Delivery Doctor:: Tiara Muñoz MD Labor and Delivery Nurse:: Sarah Rankin RN Labor and Delivery Nurse:: Juanita Johnson RN Nursery Nurse:: Willow Tipton RN Outdoor Pursuits Instructor/CONTENT CREATION MANAGER: Lorrie Scott, ST MATERNAL INFORMATION Delivery Anesthesia: Epidural Medications After Delivery: Pitocin Drip 20 Units/1000ml NSS Estimated Blood Loss (ml): 200 Maternal Complications: None Provider Comments: one minute dystocia releived with Ivon, suprapubic pressure and delivery of posterior arm. No complications LABOR SUMMARY EDC: 06/19/2016 00:00 No. Babies in Womb: 1 Attempted: No Labor Anesthesia: Epidural LABOR INFORMATION Reason for Induction: Not Applicable Onset of Labor: 06/05/2016 14:30 Complete Dilatation: 06/05/2016 23:17 Oxytocin: Augmentation Group B Beta Strep: Negative Antibiotics # of Doses: 0 Steroids Given: None Reason Steroids Not Administered: Not Applicable MEMBRANES Membranes Rupture Method: Spontaneous Rupture of Membranes: 06/05/2016 08:00 Length of Rupture (hr): 15.42 Amniotic Fluid Color: Clear Amniotic Fluid Amount: Large Amniotic Fluid Odor: Normal STAGES OF LABOR Stage 1 hr: 8 Stage 1 min: 47 Stage 2 hr: 0 Stage 2 min: 8 Stage 3 hr: 0 Stage 3 min: 3 Total Time in Labor hr: 8 Total Time in Labor min: 58 VAGINAL DELIVERY Episiotomy: None Laceration Extension: N/A Laceration Type: None Laceration Repair: Not Applicable Sponge Count Correct: N/A Sharps Count Correct: N/A CSECTION DELIVERY Primary Indication: N/A Secondary Indication: N/A CSection Incidence: N/A Labor: N/A Elective: N/A CSection Incision: N/A BABY A INFORMATION Infant Delivery Date/Time: 06/05/2016 23:25 Method of Delivery: Vaginal Born in Route : No : N/A Forceps: N/A Vacuum Extraction: N/A Shoulder Dystocia : Yes SHOULDER DYSTOCIA BABY A Delivery of Head: 06/05/2016 23:24 Time Head to Delivery : 1.0 1st Intervention to Resolve: McRobert's Maneuver 2nd Intervention to Resolve: Suprapubic Pressure 3rd Intervention to Resolve: Posterior Arm Release Verify NO Fundal Pressure: No Fundal Pressure Applied Arm Under Symphisis at Del: Left PRESENTATION/POSITION BABY A Presentation: Cephalic Cephalic Presentation: Vertex Vertex Position: Right Occipital Anterior Breech Presentation: N/A PLACENTA INFORMATION BABY A Placenta Delivery Time : 06/05/2016 23:28 Placenta Method of Delivery: Spontaneous Placenta Status: Delivered SCORES BABY A Heart Rate 1 min: >100 bpm Resp Effort 1 min: Slow, Irregular Reflex Irritability 1 min: Cough or Sneeze or Pulls Away Muscle Tone 1 min: Active Motion Color 1 min: Body [place], Extremities Blue Resuscitation Effort 1 min: Tactile Stimulation SCORE 1 MIN: 8 Heart Rate 5 min: >100 bpm Resp Effort 5 min: Slow, Irregular Reflex Irritability 5 min: Cough or Sneeze or Pulls Away Muscle Tone 5 min: Active Motion Color 5 min: Body [place], Extremities Blue SCORE 5 MIN: 8 INFORMATION BABY A Gestational Age at Delivery: 38.0 Gestational Status: Early Term- 37- 38.6 Weeks Infant Outcome : Liveborn Infant Condition : Stable Infant Sex: Female IDENTIFICATION BABY A Verification Date/Time: 06/05/2016 23:47 ID Band Number: [id number] Mother's Name Verified: Yes RN Verifying : R Alex, RNC Additional Verifying Personnel: [facility], RN WEIGHT/LENGTH BABY A Birthweight (gm): 4135 Weight (lb): 9 Weight (oz): 2 Infant Length (in): 18.50 Length (cm): 46.99 CORD INFORMATION BABY A No. Cord Vessels: 3 Nuchal Cord : N/A Cord Blood Taken: Yes-For Storage (Mom's Blood type +) Infant Suction: Mouth; Nose; Pharynx ASSESSMENT BABY A Infant Complications: Shoulder Dystocia Physical Findings at Delivery: Within Normal Limits Infant Respirations: Appears Normal Skin to Skin: Yes Skin to Skin Time (min): 30 Subway Operator/ALS Called : No Infant Care By: Mehrdad Tipton RN Transferred To: Remains with Mother BABY B INFORMATION : N/A SIGNATURES Signature: with User ID: Corona
--- NOTE | 2016-06-06 03:46 | L&D Discharge Summary ---
OB Discharge Summary Datetime Report Generated by CPN: 06/06/2016 03:46 DISCHARGE DIAGNOSIS Diagnosis/Symptoms: Reassuring Surveillance - Annotate Details Diagnoses/Symptoms Other: IUP @ 27.5. Not in labor Gestation: 38.0 Number of Babies in Womb: 1 Parity: 3 DIET/ACTIVITY/RESTRICTIONS Diet: Regular Activity: Normal Activity TEACHING/INSTRUCTIONS/REFERRALS Instructions Given To: Pt/ FOB Instructions Understood: Patient Verbalized Understanding; Support Person Verbalized Understanding Referrals: None Educational Materials- Other: NST, Kick counts DISCHARGE INFORMATION Discharged AMA: No Discharge Date/Time: 03/25/2016 19:02 Discharged To: Home Discharge Provider Name: HRaphael Osman CNM Accompanied By: FOB Discharge Method: Ambulatory Condition: Stable FOLLOW UP INFORMATION Follow Up With: [facility] Follow Up On: As Scheduled Follow Up Phone Number: [facility] -
[2016-06-06] MEDS ORDERED: IBUPROFEN 800 MG TABLET PO SCH (06:00)
[2016-06-06 07:01] LABS: HEMATOCRIT 28.9 % (36.0-47.0); HGB HCT DIFFERENCE 1.1; MEAN CORPUSCULAR HEMOGLOBIN 29.7 pg (27.0-33.4); MEAN CORPUSCULAR HGB CONC 34.5 g/dL (32.0-36.0); MEAN CORPUSCULAR VOLUME 86 fl (80-97); RED BLOOD COUNT 3.36 10^6/uL (3.72-5.28); RED CELL DISTRIBUTION WIDTH 15.5 % (11.5-14.0); WHITE BLOOD COUNT 11.5 10^3/uL (4.0-10.5)
[2016-06-06] MEDS: ACETAMINOPHEN WITH CODEINE #3 TABLET PO PRN ×2 (08:46→16:00)
--- NOTE | 2016-06-06 09:33 | PDOC PROGRESS REPORT ---
Subjective-OB Subjective: Post Delivery Day: 35 year old. Denies any needs at this time Physical Exam (OB) Vital Signs: Temp Pulse Resp BP Pulse Ox 98.4 F 97 18 108/54 L 99 06/06/16 01:49 06/06/16 01:49 06/06/16 01:49 06/06/16 01:49 06/06/16 01:49 Intake & Output 06/05/16 06/06/16 06/07/16 06:59 06:59 06:59 Weight 109.769 kg - Lochia Lochia Amount: Small 10-25 ml Lochia Color: Rubra/Red - Abdomen Description: Soft, Round Hernia Present: No Bowel Sounds: Normoactive Flatus Presence: Present Stool: No Fundal Description: Firm, Midline Fundal Height: u/u - u/2 Objective-Diagnostic Laboratory: 06/06/16 06:38 06/05/16 06/05/16 06/05/16 11:30 14:00 14:00 WBC 12.7 H RBC 3.65 L Hgb 10.7 L Hct 31.7 L MCV 87 MCH 29.3 MCHC 33.7 RDW 15.9 H Plt Count 87 L Seg Neutrophils % 88.5 H Lymphocytes % 7.7 L Monocytes % 3.6 Eosinophils % 0.1 Basophils % 0.1 Absolute Neutrophils 11.3 H Absolute Lymphocytes 1.0 Absolute Monocytes 0.5 Absolute Eosinophils 0.0 Absolute Basophils 0.0 Urine Color STRAW Urine Appearance CLEAR Urine pH 6.0 Ur Specific [place] 1.003 Urine Protein NEGATIVE Urine Glucose (UA) NEGATIVE Urine Ketones NEGATIVE Urine Blood SMALL H Urine Nitrite NEGATIVE Ur Leukocyte Esterase NEGATIVE Blood Type A POSITIVE Antibody Screen NEGATIVE 06/06/16 06:38 WBC 11.5 H RBC 3.36 L Hgb 10.0 L Hct 28.9 L MCV 86 MCH 29.7 MCHC 34.5 RDW 15.5 H Plt Count 84 L Seg Neutrophils % Lymphocytes % Monocytes % Eosinophils % Basophils % Absolute Neutrophils Absolute Lymphocytes Absolute Monocytes Absolute Eosinophils Absolute Basophils Urine Color Urine Appearance Urine pH Ur Specific [place] Urine Protein Urine Glucose (UA) Urine Ketones Urine Blood Urine Nitrite Ur Leukocyte Esterase Blood Type Antibody Screen
[2016-06-06] MEDS: PRENATAL VITAMIN W-O CA NO5/FE FUMARATE/FA CAPSULE PO SCH (10:34)
[2016-06-06] MEDS: DOCUSATE SODIUM 100 MG CAPSULE PO SCH ×2 (10:35→17:24)
[2016-06-06] MEDS: FERROUS SULFATE 325 MG TABLET PO SCH ×2 (10:35→17:24)
[2016-06-06] MEDS: SENNOSIDES/DOCUSATE 8.6-50 MG 1 EACH TABLET PO SCH (12:22)
[2016-06-07 07:05] LABS: ABSOLUTE LYMPHOCYTES (AUTO) 2.2 10^3/uL (0.5-4.7)
[2016-06-07 07:10] LABS: ABSOLUTE EOSINOPHILS # (AUTO) 0.2 10^3/uL (0.0-0.6); ABSOLUTE MONOCYTES (AUTO) 0.6 10^3/uL (0.1-1.4); ABSOLUTE NEUT (AUTO) 5.5 10^3/uL (1.7-8.2); BASOPHILS % (AUTO) 0.3 % (0-2); EOSINOPHILS % (AUTO) 1.9 % (0-6); HEMATOCRIT 30.6 % (36.0-47.0); HEMOGLOBIN 10.5 g/dL (12.0-15.5); HGB HCT DIFFERENCE 0.9; LYMPHOCYTES % (AUTO) 25.7 % (13-45); MEAN CORPUSCULAR HEMOGLOBIN 29.7 pg (27.0-33.4); MEAN CORPUSCULAR HGB CONC 34.2 g/dL (32.0-36.0); MEAN CORPUSCULAR VOLUME 87 fl (80-97); MONOCYTES % (AUTO) 6.9 % (3-13); RED BLOOD COUNT 3.52 10^6/uL (3.72-5.28); SEGMENTED NEUTROPHILS % (AUTO) 65.2 % (42-78); WHITE BLOOD COUNT 8.4 10^3/uL (4.0-10.5)
[2016-06-07 08:11] LABS: PLATELET ESTIMATE 117 10^3/uL (150-450)
[2016-06-07 08:12] LABS: POIKILOCYTOSIS 1+; POLYCHROMASIA 1+
[2016-06-07 08:13] LABS: ANISOCYTOSIS 1+; HYPOCHROMASIA SLIGHT; OVALOCYTES SLIGHT; TEAR DROP CELLS SLIGHT
--- NOTE | 2016-06-07 08:18 | PDOC DISCHARGE SUMMARY ---
Final Diagnosis Discharge Date: 06/07/16 - Final Diagnosis (1) Shoulder dystocia during labor and delivery, delivered Is this a current diagnosis for this admission?: Yes (2) Delivery normal Is this a current diagnosis for this admission?: Yes Discharge Data - Discharge Medication Home Medications: Ergocalciferol (Vitamin D2) [Vitamin D] 400 unit PO DAILY 03/25/16 Levothyroxine Sodium [Synthroid] 25 mcg PO DAILY 03/25/16 Loratadine [Claritin] 10 mg PO DAILY 03/25/16 [place]-3/Dha/Epa/Fish Oil [[place] 3 500 Softgel] 1 each PO DAILY 03/25/16 Pnv with Ca,No.72/Iron/FA [Pnv Plus Multivit Tab] 1 each PO DAILY 03/25 Ranitidine HCl [Heartburn Relief] 150 mg PO DAILY 03/25/16 Glyburide/Metformin HCl [Glyburid-Metformin 1.25-250 mg] 1 each PO BID 05/02/16 Reason(s) for Admission: Onset of Labor Procedures: NST Intrapartum Procedure(s): Spontaneous Vaginal Delivery Intrapartum Procedure Note: shoulder dystocia 1 minute relieved with heidi, suprapubic pressure and del of posterior arm - Diagnosis Test Laboratory: Temp Pulse Resp BP Pulse Ox 98.4 F 86 16 108/58 L 99 06/06/16 12:36 06/06/16 12:36 06/06/16 12:36 06/06/16 08:28 06/06/16 12:36 06/05/16 06/05/16 06/06/16 11:30 14:00 06:38 RBC 3.65 L 3.36 L Hgb 10.7 L 10.0 L Hct 31.7 L 28.9 L Urine Opiates Screen NEGATIVE 06/07/16 06:47 RBC 3.52 L Hgb 10.5 L Hct 30.6 L Urine Opiates Screen - Discharge information/Instructions Discharge Activity: Activity As Tolerated, No Lifting Over 10 Pounds, Pelvic Rest, No tub bath Discharge Diet: Regular Disposition: HOME, SELF-CARE Follow up with: [facility] in: 4, Weeks
[2016-06-07 09:22] VITALS: BP 105/57
[2016-06-07] MEDS: PRENATAL VITAMIN W-O CA NO5/FE FUMARATE/FA CAPSULE PO SCH (11:10)
[2016-06-07] MEDS: DOCUSATE SODIUM 100 MG CAPSULE PO SCH (11:11)
[2016-06-07] MEDS: SENNOSIDES/DOCUSATE 8.6-50 MG 1 EACH TABLET PO SCH (11:11)
[2016-06-07] MEDS: FERROUS SULFATE 325 MG TABLET PO SCH (11:11)
--- NOTE | 2016-06-09 23:40 | L&D Discharge Summary ---
OB Discharge Summary Datetime Report Generated by CPN: 06/09/2016 23:40 DISCHARGE DIAGNOSIS Diagnosis/Symptoms: Reassuring Surveillance - Annotate Details Diagnoses/Symptoms Other: IUP @ 27.5. Not in labor Gestation: 38.0 Number of Babies in Womb: 1 Parity: 3 DIET/ACTIVITY/RESTRICTIONS Diet: Regular Activity: Normal Activity TEACHING/INSTRUCTIONS/REFERRALS Instructions Given To: Pt/ FOB Instructions Understood: Patient Verbalized Understanding; Support Person Verbalized Understanding Referrals: None Educational Materials- Other: NST, Kick counts DISCHARGE INFORMATION Discharged AMA: No Discharge Date/Time: 03/25/2016 19:02 Discharged To: Home Discharge Provider Name: HRaphael Osman CNM Accompanied By: FOB Discharge Method: Ambulatory Condition: Stable FOLLOW UP INFORMATION Follow Up With: [facility] Follow Up On: As Scheduled Follow Up Phone Number: [facility] -
== END 2016-06-07 12:33 | disposition home or self-care (01) | DRG 774 ==
LOC: LC 11:14 → LR 12:38 → 2S 06-06 01:46
PROVIDERS: ADMIT Obstetrics & Gynecology; ATTEND Obstetrics & Gynecology
PROC: 10E0XZZ Delivery of Products of Conception, External Approach (ICD-10-PCS; principal; 2016-06-05)
PROC: 10H07YZ Insertion of Other Device into Products of Conception, Via Natural or Artificial Opening (ICD-10-PCS; 2016-06-05)
PROC: 4A1H7CZ Monitoring of Products of Conception, Cardiac Rate, Via Natural or Artificial Opening (ICD-10-PCS; 2016-06-05)
PROC: 3E0234Z Introduction of Serum, Toxoid and Vaccine into Muscle, Percutaneous Approach (ICD-10-PCS; 2016-06-06)
DX: O66.0 Obstructed labor due to shoulder dystocia (principal); O99.413 Diseases of the circulatory system complicating pregnancy, third trimester; O99.12 Other diseases of the blood and blood-forming organs and certain disorders involving the immune mechanism complicating childbirth; D69.3 Immune thrombocytopenic purpura; O22.43 Hemorrhoids in pregnancy, third trimester; Z68.41 Body mass index [BMI] 40.0-44.9, adult; O99.214 Obesity complicating childbirth; O24.425 Gestational diabetes mellitus in childbirth, controlled by oral hypoglycemic drugs; Z37.0 Single live birth; E66.9 Obesity, unspecified; Z23 Encounter for immunization; Z87.891 Personal history of nicotine dependence; O99.284 Endocrine, nutritional and metabolic diseases complicating childbirth; Z90.721 Acquired absence of ovaries, unilateral; E03.9 Hypothyroidism, unspecified; O99.344 Other mental disorders complicating childbirth; F41.9 Anxiety disorder, unspecified; I49.9 Cardiac arrhythmia, unspecified; R00.2 Palpitations; Z3A.38 38 weeks gestation of pregnancy; O99.62 Diseases of the digestive system complicating childbirth; K21.9 Gastro-esophageal reflux disease without esophagitis; O99.02 Anemia complicating childbirth; F98.8 Other specified behavioral and emotional disorders with onset usually occurring in childhood and adolescence; Z87.09 Personal history of other diseases of the respiratory system; Z90.49 Acquired absence of other specified parts of digestive tract
CPT/HCPCS: 36415; 76815; 80307; 81005; 82962; 84112; 85025; 85027; 86592; 86850; 86900; 86901; J2590; J3490

== ENCOUNTER 2017-01-15 08:02 | Outpatient (CLI) | payer OTHER, MEDICAID ==
[~2017-01-15 08:02] MED LIST: FERRIC CARBOXYMALTOSE 750 MG in NORMAL SALINE 250 ML IV PRN; NORMAL SALINE 250 ML IV PRN
[2017-01-15 08:44] VITALS: BP 126/62
== END 2017-01-15 09:33 | disposition home or self-care (01) ==
LOC: II 08:02 → 5TH 08:04 → II 09:33
PROVIDERS: ATTEND Internal Medicine
PROC: 3E033GC Introduction of Other Therapeutic Substance into Peripheral Vein, Percutaneous Approach (ICD-10-PCS; principal; 2017-01-15)
DX: D50.8 Other iron deficiency anemias (principal); K90.9 Intestinal malabsorption, unspecified
CPT/HCPCS: 96374; J7050; J1439; 96367

== ENCOUNTER 2017-01-22 08:02 | Outpatient (CLI) | payer OTHER, MEDICAID ==
[2017-01-22 10:19] VITALS: BP 116/54
== END 2017-01-22 10:24 | disposition home or self-care (01) ==
LOC: II 08:02 → 5TH 08:03 → II 10:24
PROVIDERS: ATTEND Internal Medicine
PROC: 3E033GC Introduction of Other Therapeutic Substance into Peripheral Vein, Percutaneous Approach (ICD-10-PCS; principal; 2017-01-22)
DX: D50.8 Other iron deficiency anemias (principal); K90.9 Intestinal malabsorption, unspecified
CPT/HCPCS: 96374; J7050; J1439; 96367

== ENCOUNTER → 2017-03-21 | Outpatient (CLI) | payer OTHER, MEDICAID ==
[2017-03-21 17:58] LABS: ABSOLUTE EOSINOPHILS # (AUTO) 0.1 10^3/uL (0.0-0.6); ABSOLUTE LYMPHOCYTES (AUTO) 2.4 10^3/uL (0.5-4.7); ABSOLUTE MONOCYTES (AUTO) 0.6 10^3/uL (0.1-1.4); ABSOLUTE NEUT (AUTO) 6.8 10^3/uL (1.7-8.2); BASOPHILS % (AUTO) 0.2 % (0-2); EOSINOPHILS % (AUTO) 1.3 % (0-6); HEMATOCRIT 37.1 % (36.0-47.0); HEMOGLOBIN 12.7 g/dL (12.0-15.5); MEAN CORPUSCULAR HGB CONC 34.3 g/dL (32.0-36.0); MEAN CORPUSCULAR VOLUME 90 fl (80-97); MONOCYTES % (AUTO) 6.5 % (3-13); RED BLOOD COUNT 4.11 10^6/uL (3.72-5.28); RED CELL DISTRIBUTION WIDTH 14.7 % (11.5-14.0); TOTAL CELLS COUNTED % (AUTO) 100 %
[2017-03-21 18:20] LABS: PLATELET COUNT 89 10^3/uL (150-450)
== END ==
LOC: LB 17:39
PROVIDERS: ATTEND Internal Medicine
DX: D69.3 Immune thrombocytopenic purpura (principal)
CPT/HCPCS: 36415; 85025

== ENCOUNTER → 2017-04-04 | Outpatient (CLI) | payer OTHER, MEDICAID | LOC: OD 17:16 | PROVIDERS: ATTEND Student in an Organized Health Care Education/Training Program | DX: Z11.4 Encounter for screening for human immunodeficiency virus [HIV] (principal); Z11.59 Encounter for screening for other viral diseases; Z13.29 Encounter for screening for other suspected endocrine disorder | CPT/HCPCS: 36415; 84443; 86592; 86701 ==

== ENCOUNTER → 2017-04-23 | Outpatient (CLI) | payer OTHER, MEDICAID ==
[2017-04-23 17:39] LABS: ABSOLUTE EOSINOPHILS # (AUTO) 0.1 10^3/uL (0.0-0.6); ABSOLUTE LYMPHOCYTES (AUTO) 2.4 10^3/uL (0.5-4.7); ABSOLUTE MONOCYTES (AUTO) 0.7 10^3/uL (0.1-1.4); ABSOLUTE NEUT (AUTO) 6.9 10^3/uL (1.7-8.2); BASOPHILS % (AUTO) 0.2 % (0-2); EOSINOPHILS % (AUTO) 0.8 % (0-6); HEMATOCRIT 36.3 % (36.0-47.0); HEMOGLOBIN 12.5 g/dL (12.0-15.5); LYMPHOCYTES % (AUTO) 23.7 % (13-45); MEAN CORPUSCULAR HEMOGLOBIN 31.3 pg (27.0-33.4); MEAN CORPUSCULAR HGB CONC 34.6 g/dL (32.0-36.0); MEAN CORPUSCULAR VOLUME 91 fl (80-97); MONOCYTES % (AUTO) 7.3 % (3-13); RED BLOOD COUNT 4.01 10^6/uL (3.72-5.28); TOTAL CELLS COUNTED % (AUTO) 100 %; WHITE BLOOD COUNT 10.2 10^3/uL (4.0-10.5)
[2017-04-23 18:07] LABS: PLATELET COUNT 94 10^3/uL (150-450)
== END ==
LOC: OD 16:24
PROVIDERS: ATTEND Internal Medicine
DX: D69.3 Immune thrombocytopenic purpura (principal)
CPT/HCPCS: 36415; 85025

== ENCOUNTER 2017-04-29 16:47 | Outpatient (CLI) | payer OTHER, MEDICAID ==
--- NOTE | 2017-04-29 18:04 | Non Stress Test Report ---
Non Stress Test Datetime Report Generated by CPN: 04/29/2017 18:04 DEMOGRAPHIC EGA NST: 32.0 INDICATION Indication for Study: Diabetes Mellitus; Other Indication for Study: Diabetes Mellitus; Other Indication for Study (NST) Other: repeat NST, sent from office Indication for Study (NST) Other: repeat NST, sent from office VITAL SIGNS Pulse - NST: 80 NBPSYS NST: 132 NBPDIA NST: 65 MONITORING Monitor Explained: Monitor Explained; Test Explained; Patient Verbalized Understanding Monitor Explained: Monitor Explained; Test Explained; Patient Verbalized Understanding Time on Monitor: 04/29/2017 17:01 Time on Monitor: 04/29/2017 17:01 Time off Monitor: 04/29/2017 17:41 Time off Monitor: 04/29/2017 17:41 NST Duration: 40 NST Duration: 40 NST INTERVENTIONS NST Interventions: PO Hydration NST Interventions: PO Hydration Physician Notified NST: HRaphael Brewer, ANGELINAM BABY A: [id number] BABY A Movement : Present Movement : Present Contraction Frequency : 0 Contraction Frequency : 0 FHR Baseline : 125 Accelerations : 15X15 Accelerations : 15X15 Decelerations : None Variability : Moderate 6-25bpm Variability : Moderate 6-25bpm NST Review: Meets Criteria for Reactive NST NST Review: Meets Criteria for Reactive NST NST Review and Verified By : JEFFERY Chase Results: Reactive NST Results: Reactive NST REPORT Report Trigger: Send Report
== END 2017-04-29 17:56 | disposition home or self-care (01) ==
LOC: LC 16:47
PROVIDERS: ATTEND Obstetrics & Gynecology
PROC: 4A1HXCZ Monitoring of Products of Conception, Cardiac Rate, External Approach (ICD-10-PCS; principal; 2017-04-29)
DX: O24.913 Unspecified diabetes mellitus in pregnancy, third trimester (principal); O09.523 Supervision of elderly multigravida, third trimester; Z3A.32 32 weeks gestation of pregnancy
CPT/HCPCS: 59025

== ENCOUNTER 2017-05-02 16:02 | Outpatient (CLI) | payer OTHER, MEDICAID ==
--- NOTE | 2017-05-02 17:36 | Non Stress Test Report ---
Non Stress Test Datetime Report Generated by CPN: 05/02/2017 17:35 DEMOGRAPHIC EGA NST: 32.3 INDICATION Indication for Study: Ordered by Provider Indication for Study (NST) Other: gdm MONITORING Monitor Explained: Monitor Explained; Test Explained; Patient Verbalized Understanding Time on Monitor: 05/02/2017 16:22 Time off Monitor: 05/02/2017 17:26 NST Duration: 64 NST INTERVENTIONS NST Interventions: PO Hydration; Reposition Patient Physician Notified NST: Dr Jolley BABY A: [id number] BABY A Movement : Present Contraction Frequency : 0 FHR Baseline : 130 Accelerations : 15X15 Decelerations : None Variability : Moderate 6-25bpm NST Review: Meets Criteria for Reactive NST NST Review and Verified By : JEFFREY Chase Results: Reactive NST REPORT Report Trigger: Send Report
== END 2017-05-02 17:30 | disposition home or self-care (01) ==
LOC: LC 16:02
PROVIDERS: ATTEND Obstetrics & Gynecology
PROC: 4A1HXCZ Monitoring of Products of Conception, Cardiac Rate, External Approach (ICD-10-PCS; principal; 2017-05-02)
DX: O24.419 Gestational diabetes mellitus in pregnancy, unspecified control (principal); O09.523 Supervision of elderly multigravida, third trimester; Z3A.32 32 weeks gestation of pregnancy
CPT/HCPCS: 59025

== ENCOUNTER → 2017-05-07 | Outpatient (CLI) | payer OTHER, MEDICAID ==
[2017-05-07 18:31] LABS: ABSOLUTE EOSINOPHILS # (AUTO) 0.1 10^3/uL (0.0-0.6); ABSOLUTE LYMPHOCYTES (AUTO) 1.9 10^3/uL (0.5-4.7); ABSOLUTE MONOCYTES (AUTO) 0.9 10^3/uL (0.1-1.4); ABSOLUTE NEUT (AUTO) 7.3 10^3/uL (1.7-8.2); BASOPHILS % (AUTO) 0.2 % (0-2); EOSINOPHILS % (AUTO) 1.3 % (0-6); HEMATOCRIT 37.3 % (36.0-47.0); HEMOGLOBIN 12.7 g/dL (12.0-15.5); LYMPHOCYTES % (AUTO) 18.6 % (13-45); MEAN CORPUSCULAR HEMOGLOBIN 30.9 pg (27.0-33.4); MEAN CORPUSCULAR HGB CONC 34.1 g/dL (32.0-36.0); MEAN CORPUSCULAR VOLUME 91 fl (80-97); MONOCYTES % (AUTO) 8.4 % (3-13); RED BLOOD COUNT 4.11 10^6/uL (3.72-5.28); RED CELL DISTRIBUTION WIDTH 13.7 % (11.5-14.0); SEGMENTED NEUTROPHILS % (AUTO) 71.5 % (42-78); TOTAL CELLS COUNTED % (AUTO) 100 %; WHITE BLOOD COUNT 10.1 10^3/uL (4.0-10.5)
[2017-05-07 19:15] LABS: PLATELET COUNT 78 10^3/uL (150-450)
== END ==
LOC: OD 16:37
PROVIDERS: ATTEND Internal Medicine
DX: D69.3 Immune thrombocytopenic purpura (principal)
CPT/HCPCS: 36415; 85025

== ENCOUNTER 2017-05-26 15:24 | Outpatient (CLI) | payer OTHER, MEDICAID ==
--- NOTE | 2017-05-26 16:25 | Non Stress Test Report ---
Non Stress Test Datetime Report Generated by CPN: 05/26/2017 16:24 DEMOGRAPHIC EGA NST: 35.6 INDICATION Indication for Study: Diabetes Mellitus MONITORING Monitor Explained: Monitor Explained; Test Explained; Patient Verbalized Understanding Time on Monitor: 05/26/2017 15:40 Time off Monitor: 05/26/2017 16:00 NST Duration: 20 NST INTERVENTIONS NST Interventions: PO Hydration Physician Notified NST: H Osman, CNM BABY A: [id number] BABY A Movement : Present Contraction Frequency : 0 FHR Baseline : 135 Accelerations : 15X15 Decelerations : None Variability : Moderate 6-25bpm NST Review: Meets Criteria for Reactive NST NST Review and Verified By : Mehrdad Ojeda RNC NST Results: Reactive NST REPORT Report Trigger: Send Report
--- NOTE | 2017-05-26 19:58 | RADIOLOGY REPORT (SQ) ---
EXAM DESCRIPTION: U/S PROFILE W/O STRESS COMPLETED DATE/TIME: 05/26/2017 7:28 pm REASON FOR STUDY: BPP and growth COMPARISON: None. TECHNIQUE: Limited inman-scale realtime and static images of the fetus to measure specified parameter s. LIMITATIONS: None. FINDINGS: HEART RATE: 125 beats per minute. SEDRICK: 11.8 cm. BREATHING MOVEMENT: 0 points. MOVEMENT: 2 points. POSTURE AND TONE: 2 points. QUALITATIVE SEDRICK: 2 points. OTHER: No other significant finding. IMPRESSION: BIOPHYSICAL PROFILE: 08/01 Trimester of : Third - 28 weeks to delivery COMMENT: BREATHING MOVEMENTS: 2 POINTS: PRESENT 0 POINTS: ABSENT MOTION: 2 POINTS: PRESENT 0 POINTS: ABSENT TONE: 2 POINTS: PRESENT 0 POINTS: ABSENT AMNIOTIC FLUID VOLUME: 2 POINTS: LARGEST POCKET GREATER THAN 2 CM DEPTH. 0 POINTS: NO POCKET OF 2 CM. TECHNICAL DOCUMENTATION: JOB ID: [id number] [email or web address]- All Rights Reserved Reading location - IP/workstation name: [email or web address]
--- NOTE | 2017-05-26 21:04 | Non Stress Test Report ---
Non Stress Test Datetime Report Generated by CPN: 05/26/2017 21:04 DEMOGRAPHIC EGA NST: 35.6 INDICATION Indication for Study: Ordered by Provider MONITORING Monitor Explained: Monitor Explained; Test Explained; Patient Verbalized Understanding Time on Monitor: 05/26/2017 20:05 Time off Monitor: 05/26/2017 20:33 NST Duration: 28 NST INTERVENTIONS NST Interventions: PO Hydration; Other NST Interventions Other: Snack given Physician Notified NST: Dr Hearn BABY A Movement : Present Contraction Frequency : irregular FHR Baseline : 130 Accelerations : 15X15 Decelerations : None Variability : Moderate 6-25bpm NST Review: Meets Criteria for Reactive NST NST Review and Verified By : Amado Tam RN NST Results: Reactive NST REPORT Report Trigger: Send Report
== END 2017-05-26 20:45 | disposition home or self-care (01) ==
LOC: LC 15:24
PROVIDERS: ATTEND Obstetrics & Gynecology
PROC: 4A1HXCZ Monitoring of Products of Conception, Cardiac Rate, External Approach (ICD-10-PCS; principal; 2017-05-26)
DX: O47.03 False labor before 37 completed weeks of gestation, third trimester (principal); O24.415 Gestational diabetes mellitus in pregnancy, controlled by oral hypoglycemic drugs; O09.523 Supervision of elderly multigravida, third trimester; Z3A.35 35 weeks gestation of pregnancy
CPT/HCPCS: 36415; 59025; 76819; 83036

== ENCOUNTER → 2017-05-28 | Outpatient (CLI) | payer OTHER, MEDICAID ==
[2017-05-28 13:41] LABS: HEMATOCRIT 37.3 % (36.0-47.0); HEMOGLOBIN 12.8 g/dL (12.0-15.5); MEAN CORPUSCULAR HEMOGLOBIN 30.6 pg (27.0-33.4); MEAN CORPUSCULAR HGB CONC 34.2 g/dL (32.0-36.0); MEAN CORPUSCULAR VOLUME 89 fl (80-97); RED BLOOD COUNT 4.17 10^6/uL (3.72-5.28); RED CELL DISTRIBUTION WIDTH 13.8 % (11.5-14.0); WHITE BLOOD COUNT 8.5 10^3/uL (4.0-10.5)
[2017-05-28 14:03] LABS: PLATELET COUNT 75 10^3/uL (150-450)
[2017-05-28 14:07] LABS: ABSOLUTE LYMPHOCYTES# (MANUAL) 1.7 10^3/uL (0.5-4.7); ABSOLUTE MONOCYTES # (MANUAL) 0.3 10^3/uL (0.1-1.4); ABSOLUTE NEUTROPHILS# (MANUAL) 6.4 10^3/uL (1.7-8.2); BASOPHILS % (MANUAL) 0 % (0-2); EOSINOPHILS % (MANUAL) 1 % (0-6); LYMPHOCYTES % (MANUAL) 18 % (13-45); MONOCYTES % (MANUAL) 4 % (3-13); PLATELET COMMENT DECREASED; PLATELET LARGE PRESENT; POIKILOCYTOSIS SLIGHT; POLYCHROMASIA SLIGHT; SEGMENTED NEUTROPHILS % (MAN) 75 % (42-78); TEAR DROP CELLS SLIGHT; TOTAL CELLS COUNTED 100
[2017-05-29 14:10] LABS: PATH REVIEW PATHOLOGIST REVIEWED
== END ==
LOC: OD 13:02
PROVIDERS: ATTEND Internal Medicine
DX: D69.3 Immune thrombocytopenic purpura (principal)
CPT/HCPCS: 36415; 85025

== ENCOUNTER → 2017-06-03 | Outpatient (CLI) | payer OTHER, MEDICAID ==
[2017-06-03 17:53] LABS: HEMATOCRIT 36.6 % (36.0-47.0); HEMOGLOBIN 12.5 g/dL (12.0-15.5); MEAN CORPUSCULAR HEMOGLOBIN 30.5 pg (27.0-33.4); MEAN CORPUSCULAR HGB CONC 34.1 g/dL (32.0-36.0); MEAN CORPUSCULAR VOLUME 89 fl (80-97); PLATELET COUNT 135 10^3/uL (150-450); RED CELL DISTRIBUTION WIDTH 13.8 % (11.5-14.0); WHITE BLOOD COUNT 11.5 10^3/uL (4.0-10.5)
[2017-06-03 18:37] LABS: ABSOLUTE LYMPHOCYTES# (MANUAL) 2.6 10^3/uL (0.5-4.7); ABSOLUTE MONOCYTES # (MANUAL) 1.2 10^3/uL (0.1-1.4); ABSOLUTE NEUTROPHILS# (MANUAL) 7.6 10^3/uL (1.7-8.2); BASOPHILS % (MANUAL) 0 % (0-2); EOSINOPHILS % (MANUAL) 1 % (0-6); LYMPHOCYTES % (MANUAL) 23 % (13-45); MONOCYTES % (MANUAL) 10 % (3-13); SEGMENTED NEUTROPHILS % (MAN) 66 % (42-78); TOTAL CELLS COUNTED 100
[2017-06-03 18:38] LABS: PLATELET COMMENT DECREASED; TEAR DROP CELLS SLIGHT; TOXIC GRANULATION SLIGHT
== END ==
LOC: OD 17:09
PROVIDERS: ATTEND Internal Medicine
DX: D69.3 Immune thrombocytopenic purpura (principal)
CPT/HCPCS: 36415; 85025

== ENCOUNTER → 2017-08-15 | Outpatient (CLI) | payer OTHER, MEDICAID | LOC: OD 17:16 | PROVIDERS: ATTEND Student in an Organized Health Care Education/Training Program | DX: Z13.1 Encounter for screening for diabetes mellitus (principal) | CPT/HCPCS: 36415; 83036; 84443 ==

== ENCOUNTER → 2018-05-06 | Outpatient (CLI) | payer OTHER ==
[2018-05-06 17:46] LABS: IRON(TIBC) 35.1 ug/dL (37-170)
== END ==
LOC: OD 17:03
PROVIDERS: ATTEND Family Medicine
DX: R53.83 Other fatigue (principal)
CPT/HCPCS: 36415; 82533; 82607; 82728; 83540; 83550

== ENCOUNTER → 2018-09-07 | Outpatient (CLI) | payer OTHER ==
[2018-09-07 19:30] LABS: ANION GAP 12 (5-19); BLOOD UREA NITROGEN 11 mg/dL (7-20); CALCIUM 9.3 mg/dL (8.4-10.2); CARBON DIOXIDE 23 mmol/L (22-30); CHLORIDE 105 mmol/L (98-107); GLUCOSE 92 mg/dL (75-110); POTASSIUM 3.8 mmol/L (3.6-5.0); SODIUM 140.2 mmol/L (137-145)
== END ==
LOC: OD 17:01
PROVIDERS: ATTEND Family Medicine
DX: R73.03 Prediabetes (principal); E03.9 Hypothyroidism, unspecified
CPT/HCPCS: 36415; 80048; 83036; 84443

== ENCOUNTER → 2019-03-19 | Outpatient (CLI) | payer OTHER ==
[2019-03-19 10:34] LABS: ABSOLUTE EOSINOPHILS # (AUTO) 0.1 10^3/uL (0.0-0.6); ABSOLUTE LYMPHOCYTES (AUTO) 1.6 10^3/uL (0.5-4.7); ABSOLUTE MONOCYTES (AUTO) 0.3 10^3/uL (0.1-1.4); ABSOLUTE NEUT (AUTO) 4.3 10^3/uL (1.7-8.2); BASOPHILS % (AUTO) 0.7 % (0-2); EOSINOPHILS % (AUTO) 2.2 % (0-6); HEMOGLOBIN 13.7 g/dL (12.0-15.5); LYMPHOCYTES % (AUTO) 24.5 % (13-45); MEAN CORPUSCULAR HEMOGLOBIN 30.1 pg (27.0-33.4); MEAN CORPUSCULAR HGB CONC 34.4 g/dL (32.0-36.0); MEAN CORPUSCULAR VOLUME 88 fl (80-97); MONOCYTES % (AUTO) 5.2 % (3-13); PLATELET COUNT 137 10^3/uL (150-450); RED BLOOD COUNT 4.57 10^6/uL (3.72-5.28); RED CELL DISTRIBUTION WIDTH 13.1 % (11.5-14.0); SEGMENTED NEUTROPHILS % (AUTO) 67.4 % (42-78); TOTAL CELLS COUNTED % (AUTO) 100 %; WHITE BLOOD COUNT 6.4 10^3/uL (4.0-10.5)
[2019-03-19 10:57] LABS: IRON(TIBC) 52.2 ug/dL (37-170)
[2019-03-19 11:18] LABS: ERYTHROCYTE SEDIMENTATION RATE 17 mm/hr (0-20)
[2019-03-20 14:36] LABS: ANTICHROMATIN AB <0.2 AI (0.0-0.9); CENTROMERE B AB <0.2 AI (0.0-0.9); JO-1 ANTIBODY (ANACOMP) <0.2 AI (0.0-0.9); SJOGREN'S ANTI-SS-B AB <0.2 AI (0.0-0.9); SJOGREN'S SS-A ANTIBODY <0.2 AI (0.0-0.9)
[2019-03-20 16:36] LABS: DNA DOUBLE STRAND ANTIBODY ANA 1 IU/mL (0-9)
== END ==
LOC: OD 09:27
PROVIDERS: ATTEND Family Medicine
DX: E03.9 Hypothyroidism, unspecified (principal); E61.1 Iron deficiency; M25.50 Pain in unspecified joint; R73.03 Prediabetes
CPT/HCPCS: 36415; 82728; 83036; 83540; 83550; 84443; 85025; 85652; 86140; 86200; 86225; 86235; 86430

== ENCOUNTER → 2019-04-02 | Outpatient (CLI) | payer OTHER ==
--- NOTE | 2019-04-02 10:38 | RADIOLOGY REPORT (SQ) ---
EXAM DESCRIPTION: LUMBAR SPINE 2 VIEWS COMPLETED DATE/TIME: 04/02/2019 9:56 am REASON FOR STUDY: CERVICALGIA, LOW BACK PAIN, COCCYDYNIA, SCOLIOSIS OF T SPINE M54.2 CERVICALGIA M5 4.5 LOW BACK PAIN M53.3 SACROCOCCYGEAL DISORDERS, NOT ELSEWHERE CLASSIFIED COMPARISON: None. NUMBER OF VIEWS: Two views. TECHNIQUE: AP and lateral radiographic images acquired of the lumbar spine. LIMITATIONS: None. FINDINGS: MINERALIZATION: Normal. SEGMENTATION: Normal. No transitional anatomy. ALIGNMENT: Normal. VERTEBRAE: Maintained height. No fracture or worrisome bone lesion. DISCS: Preserved height. No significant osteophytes or end plate irregularity. POSTERIOR ELEMENTS: Pedicles and facets are intact. No pars defect or posterior arch defects. Likel y minimal lower lumbar facet arthropathy. HARDWARE: Cholecystectomy clips. PARASPINAL SOFT TISSUES: Scattered pelvic phleboliths. PELVIS: Intact as visualized. No fractures or worrisome bone lesions. SI joints intact. OTHER: No other significant finding. IMPRESSION: No acute bony abnormality of the lumbar spine. No significant degenerative disc disease. TECHNICAL DOCUMENTATION: JOB ID: [id number] [employer]- All Rights Reserved Reading location - IP/workstation name: [email or web address]
--- NOTE | 2019-04-02 10:42 | RADIOLOGY REPORT (SQ) ---
EXAM DESCRIPTION: T SPINE AP/LAT COMPLETED DATE/TIME: 04/02/2019 9:56 am REASON FOR STUDY: CERVICALGIA, LOW BACK PAIN, COCCYDYNIA, SCOLIOSIS OF T SPINE M54.2 CERVICALGIA M5 4.5 LOW BACK PAIN M53.3 SACROCOCCYGEAL DISORDERS, NOT ELSEWHERE CLASSIFIED COMPARISON: None. NUMBER OF VIEWS: Two views. TECHNIQUE: AP and lateral radiographic images acquired of the thoracic spine. LIMITATIONS: None. FINDINGS: MINERALIZATION: Normal. ALIGNMENT: Normal. No scoliosis. VERTEBRAE: No fracture or bone lesion. Maintained height, normal segmentation. DISCS: No significant loss of height or significant narrowing. No large osteophytes. HARDWARE: None in the spine. MEDIASTINUM AND SOFT TISSUES: Normal heart size and aortic contour. No soft tissue abnormality. VISUALIZED LUNG OTT: Clear. OTHER: Cholecystectomy clips. IMPRESSION: NO SIGNIFICANT RADIOGRAPHIC FINDING IN THE THORACIC SPINE. TECHNICAL DOCUMENTATION: JOB ID: [id number] [employer]- All Rights Reserved Reading location - IP/workstation name: [email or web address]
--- NOTE | 2019-04-02 10:43 | RADIOLOGY REPORT (SQ) ---
EXAM DESCRIPTION: SACRUM AND COCCYX COMPLETED DATE/TIME: 04/02/2019 9:56 am REASON FOR STUDY: CERVICALGIA, LOW BACK PAIN, COCCYDYNIA, SCOLIOSIS OF T SPINE M54.2 CERVICALGIA M5 4.5 LOW BACK PAIN M53.3 SACROCOCCYGEAL DISORDERS, NOT ELSEWHERE CLASSIFIED COMPARISON: None. NUMBER OF VIEWS: Three views. TECHNIQUE: AP, lateral, and tilt views of the sacrum and coccyx. LIMITATIONS: None. FINDINGS: MINERALIZATION: Normal. BONES: No acute fracture or dislocation. No worrisome bone lesions. SOFT TISSUES: No soft tissue swelling. No foreign body. OTHER: Scattered pelvic phleboliths. IMPRESSION: NEGATIVE STUDY OF THE SACRUM AND COCCYX. TECHNICAL DOCUMENTATION: JOB ID: [id number] [employer]- All Rights Reserved Reading location - IP/workstation name: [email or web address]
--- NOTE | 2019-04-02 13:27 | RADIOLOGY REPORT (SQ) ---
EXAM DESCRIPTION: C SP 3 VWS OR LESS COMPLETED DATE/TIME: 04/02/2019 9:56 am REASON FOR STUDY: CERVICALGIA, LOW BACK PAIN, COCCYDYNIA, SCOLIOSIS OF T SPINE M54.2 CERVICALGIA M5 4.5 LOW BACK PAIN M53.3 SACROCOCCYGEAL DISORDERS, NOT ELSEWHERE CLASSIFIED COMPARISON: None. NUMBER OF VIEWS: Three views. TECHNIQUE: AP, lateral and odontoid radiographic images acquired of the cervical spine. LIMITATIONS: None. FINDINGS: MINERALIZATION: Normal. ALIGNMENT: Straightening of the normal cervical lordosis, likely positional. VERTEBRAE: Vertebral bodies of normal height. DISCS: Mild endplate change at C5-6 and C6-7. Disc spaces are relatively well-maintained. HARDWARE: None in the spine. SOFT TISSUES: No masses or calcifications. Lung apices clear. OTHER: No other significant finding. IMPRESSION: No acute bony abnormality of the cervical spine. Mild degenerative endplate change at C5 through C7. TECHNICAL DOCUMENTATION: JOB ID: [id number]- All Rights Reserved Reading location - IP/workstation name: [email or web address]
== END ==
LOC: OD 09:30
PROVIDERS: ATTEND Family Medicine
DX: M50.323 Other cervical disc degeneration at C6-C7 level (principal); M54.5 Low back pain; M53.3 Sacrococcygeal disorders, not elsewhere classified; M41.9 Scoliosis, unspecified
CPT/HCPCS: 72040; 72070; 72100; 72220